=== PATIENT | male | born 1955 | race Caucasian/White ===

== ENCOUNTER → 2023-10-31 12:05 | Outpatient (REF) | payer MEDICARE, OTHER, SELFPAY | LOC: HWRAD 12:05 | PROVIDERS: ATTENDING PHYSICIAN Internal Medicine | DX: R42 Dizziness and giddiness (principal) | CPT/HCPCS: 71046 ==

== ENCOUNTER → 2024-03-07 11:16 | Outpatient (REF) | payer MEDICARE, SELFPAY | LOC: HWRCS 11:16 | PROVIDERS: ATTENDING PHYSICIAN Internal Medicine Cardiovascular Disease; FAMILY PHYSICIAN Internal Medicine | DX: I51.81 Takotsubo syndrome (principal) | CPT/HCPCS: 93306 ==

== ENCOUNTER → 2024-05-24 11:09 | Outpatient (REF) | payer MEDICARE, SELFPAY | LOC: HWRAD 11:09 | PROVIDERS: ATTENDING PHYSICIAN Internal Medicine; FAMILY PHYSICIAN Internal Medicine | DX: F17.210 Nicotine dependence, cigarettes, uncomplicated (principal) | CPT/HCPCS: 71271 ==

== ENCOUNTER 2024-12-15 17:42 | Emergency (ER) | payer OTHER, SELFPAY ==
[2024-12-15 17:51] VITALS: BP 147/66
[2024-12-15 19:19] LABS: % Basophils 0.2 % (0-2); % Eosinophils 2.4 % (0-6); % Immature Granulocytes 0.6 % (0-0.5); % Lymphocytes 9.4 % (20.5-51.1); % Monocytes 8.6 % (1.7-9.3); % Neutrophils 78.8 % (42.2-75.2); Absolute Eosinophils 0.3 10^3/uL (0-0.7); Absolute Immature Granulocytes 0.1 10^3/uL (0-0.05); Absolute Lymphocytes 1.2 10^3/uL (1.2-3.4); Absolute Monocytes 1.1 10^3/uL (0.1-0.6); Absolute Neutrophils 10.2 10^3/uL (1.4-6.5); Hematocrit 37.5 % (39.0-52.0); Hemoglobin 12.6 g/dL (13.0-18.0); Mean Corp Hgb Conc. 33.6 g/dL (33.0-37.0); Mean Corpuscular Hgb 32.4 pg (27.0-31.0); Mean Corpuscular Volume 96.4 fL (80.0-94.0); Mean Platelet Volume 9.7 fL (7.4-10.4); Nucleated Red Blood Cells % 0 % (-); Platelet Count 184 10^3/uL (130-400); Red Blood Cell Count 3.89 10^6/uL (4.70-6.10); Red Cell Dist. Width 14.8 % (11.5-14.5); White Blood Cell Count 12.9 10^3/uL (4.8-10.8)
[2024-12-15 19:29] LABS: INR 0.96
[2024-12-15 19:30] LABS: ALT (SGPT) 24 U/L (0-50); AST (SGOT) 26 U/L (17-59); Albumin 4.4 g/dl (3.5-5.0); Alkaline Phosphatase 73 U/L (38-126); Blood Urea Nitrogen 30 mg/dl (9-20); Calcium 9.3 mg/dl (8.4-10.2); Carbon Dioxide 31 mmol/L (22-30); Chloride 96 mmol/L (98-107); Glucose 93 mg/dl (70-99); Potassium 4.4 mmol/L (3.5-5.1); Sodium 136 mmol/L (135-145); Total Bilirubin 2.4 mg/dl (0.2-1.3); Total Protein 6.5 g/dl (6.3-8.2); eGFR 59.84
[2024-12-15 19:42] LABS: Troponin I 0.021 ng/ml
--- NOTE | 2024-12-15 20:00 | ED.GENMED ---
History of Present Illness
General
Chief Complaint: Chest Pain
Source: patient
Exam Limitations: none
Time Seen by Provider: 12/15/24 19:59
Nursing documentation reviewed up to this point in time: agreed with
History of Present Illness
History of Present Illness:
69-year-old male with history of COPD, HTN, MO, GERD, anxiety presents for chest pain and 'tightness' and fear of having 'pneumonia again.'
at bedside and pt state 'he's been in [place] 4 times in the past month and a half, had pneumonia and he keeps calling the ambulance because he's short of breath.'
He had a breathing test 2 days ago at [facility] 'where they put you in a big box and do breathing' state they haven't gotten the results yet. Today he had some chest pain and tightness which is new, he states his chest feels 'tight' right now. Has
had cough, unable to bring stuff up.
Denies fever/chills, denies n/v/d/c. Denies feeling lightheaded or dizzy.
Past History
Past History
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
ED Past Surgical History: Orthopedic (b/l hip replacements, fracture left femur 11/[address] Kwong)
Social History
Tobacco: Smoker
Alcohol: None
Drug: None
Personal:
Living: with family
Employment: Employed (Construction)
Family History
Family History: Hypertension
Review of Systems
Review of Systems
Allergies reviewed?: Yes
All Other Systems: ROS reviewed and negative except as documented in HPI and ROS
Constitutional: Denies fever
Respiratory: Reports trouble breathing; Denies cough
Cardiac: Reports chest pain; Denies diaphoresis or palpitations
ABD/GI: Denies abdominal pain, nausea, vomiting or diarrhea
: Denies dysuria or difficulty voiding
Musculoskeletal: Reports no symptoms
Skin: Reports no symptoms
Neurological: Reports no symptoms
Phy Exam
Physical Exam
Physical Exam:
GENERAL: No acute distress. A&Ox3.
CONSTITUTIONAL: Afebrile.
EYES: clear, conjunctivae normal
ENMT: moist mucus membranes
RESPIRATORY: Regular respirations, nonlabored, lungs with diminished BS throughout, coarse junky cough.
CARDIOVASCULAR: Regular rate and rhythm, no murmurs, no rubs.
GI: Soft, nontender, normal BS
MUSCULOSKELETAL: Moves with ease. Well perfused.
SKIN: Warm, dry, pink
PSYCH: Normal mood and affect. Well kept, interactive and appropriate
NEUROLOGIC: Awake, alert and oriented. No focal neurological deficits
Scores
Heart Score for Chest Pain Patients
STEMI patient?: Not applicable
Course
Orders/Labs/Results
Orders:
Orders
12/15/24 17:50
Electrocardiogram (*1) Urgent
Reason for Study: Chest Pain
EKG- Treatment ONCE
12/15/24 19:10
Complete Blood Count/With Diff Urgent
Comprehensive Metabolic Panel Urgent
Prothrombin Time Urgent
Troponin I Urgent
12/15/24 20:13
CR Chest - 2 Views Urgent
Comment:
Reason For Exam: cough, SOB
Abnormal Lab Results
12/15/24
19:10
WBC 12.9 H 10^3/uL
(4.8-10.8)
RBC 3.89 L 10^6/uL
(4.70-6.10)
Hgb 12.6 L g/dL
(13.0-18.0)
Hct 37.5 L %
(39.0-52.0)
MCV 96.4 H fL
(80.0-94.0)
MCH 32.4 H pg
(27.0-31.0)
RDW 14.8 H %
(11.5-14.5)
Abs Immat Gran (auto) 0.1 H 10^3/uL
(0-0.05)
Absolute Neuts (auto) 10.2 H 10^3/uL
(1.4-6.5)
Absolute Monos (auto) 1.1 H 10^3/uL
(0.1-0.6)
Immature Gran % 0.6 H %
(0-0.5)
Neutrophils % 78.8 H %
(42.2-75.2)
Lymphocytes % 9.4 L %
(20.5-51.1)
Chloride 96 L mmol/L
(98-107)
Carbon Dioxide 31 H mmol/L
(22-30)
BUN 30 H mg/dl
(9-20)
Total Bilirubin 2.4 H mg/dl
(0.2-1.3)
12/15/24 19:10
12/15/24 19:10
Vital Signs
Initial and Last Documented VS:
Initial Vital Signs
Temp Pulse Resp BP Pulse Ox
98.5 F 90 18 147/66 92
12/15/24 17:51 12/15/24 17:51 12/15/24 17:51 12/15/24 17:51 12/15/24 17:51
Last Documented Vital Signs
Temp Pulse Resp BP Pulse Ox
98.5 F 71 14 106/57 93
12/15/24 17:51 12/15/24 20:41 12/15/24 20:41 12/15/24 21:51 12/15/24 20:41
MDM/Problems Addressed
Differential Diagnosis Includes:
PNA, COPD, ACS
MDM/Problems Addressed:
69-year-old male with history of COPD, HTN, MO, GERD, anxiety presents for chest pain and 'tightness' and fear of having 'pneumonia again.'
at bedside and pt state 'he's been in [place] 4 times in the past month and a half, had pneumonia and he keeps calling the ambulance because he's short of breath.'
He had a breathing test 2 days ago at [facility] 'where they put you in a big box and do breathing' state they haven't gotten the results yet. Today he had some chest pain and tightness which is new, he states his chest feels 'tight' right now. Has
had cough, unable to bring stuff up.
Denies fever/chills, denies n/v/d/c. Denies feeling lightheaded or dizzy.
Afebrile, NAD
EKG NSR
9:30 PM:
CBC with no clinically significant abnormality
CMP with no clinically significant abnormality.
Troponin normal
Chest x-ray: No acute cardiopulmonary process, radiology report read
Pt and reassured, no heart attack, no pneumonia
They will f/u with [facility]
*EKG
EKG Intrepretation Date: 12/15/24
Interpretation: normal
Heart Rate: 72
Rate: normal
Rhythm: sinus
[place]: normal axis
Interval: normal interval
QRS Pattern: normal QRS
Ischemia: no ischemia
*Critical Care Note
Total Time (30-74mins, 75-104mins- exclusive of procedures): Not Applicable
ED Attending Note
-
Portions of this chart may have been created with voice recognition software.� Occasional wrong word or��sound alike� substitutions may have occurred due to the inherent limitations of voice recognition software.
Discharge Plan
Departure
Patient Disposition: Home (Routine Discharge)
Date of Disposition: 12/15/24
Time of Disposition: 21:45
Patient with high blood pressure during this ER visit?: No
Condition: Good
Discharge Problem:
Atypical chest pain, Chronic obstructive pulmonary disease
Instructions: Chronic obstructive pulmonary disease (COPD), Chest Pain That Is Not Caused by the Heart (DC)
Prescriptions:
No Action
albuterol sulfate [Ventolin HFA] 90 MCG/PUFF HFA aerosol inhaler
1 puff inhalation Q4HPRN PRN (Reason: SOB)
cholecalciferol (vitamin D3) 1,000 UNITS tablet
1,000 units PO DAILY
lisinopril 20 MG tablet
20 mg PO DAILY
thiamine HCl (vitamin B1) 100 MG tablet
100 mg PO DAILY
atorvastatin [Lipitor] 40 mg Tablet
40 mg PO DAILY
therapeutic multivitamin Tablet
1 tab PO DAILY
hydrocodone-acetaminophen 7.5-325 mg tablet
1 tab PO Q4H
pantoprazole [Protonix] 40 mg Tablet,Delayed Release (Dr/Ec)
40 mg PO DAILY
buspirone 15 mg Tablet
15 mg PO TID
diclofenac sodium 1 % Gel
1 ea TOPICAL BID
Patient Comments:
apply lidocaine 5% oinment first
lidocaine 5 % Ointment
1 applic TOPICAL BID
NuLido 4-1 % Gel
1 applic TOPICAL BID PRN (Reason: lower back, right shoulder, left hip)
Trelegy Ellipta 100-62.5-25 mcg Blister With Device
1 inh INHALATION R DAILY
Advil Dual Action 125-250 mg Tablet
1 tab PO QIDPRN PRN (Reason: mild pain)
gabapentin 300 MG capsule
600 mg PO TID
Referrals:
Michelle Sung, DO [Family Provider] - As needed
Activity Restrictions/Additional Instructions:
As we discussed, there is no indication of a heart attack or pneumonia in your workup here tonight
Continue to follow-up with [facility] and pulmonary rehab as scheduled
Interventions
Interventions:
*Risk Screen - Suicide Last Done: 12/15/24 17:51
*General Assessment Last Done: 12/15/24 22:00
*Neglect/Abuse Screening Last Done: 12/15/24 22:00
*ED- Fall Risk Assessment Last Done: 12/15/24 22:00
*ED COVID-19 Vaccine History Last Done: 12/15/24 22:00
*Nursing Disposition Last Done: 12/15/24 22:00
ED- Cardiac Assessment Last Done: 12/15/24 20:22
Discharge Date and Time
Discharge Date/Time: 12/15/24 22:01
Print Language: CROATIAN
[2024-12-15 21:51] VITALS: BP 106/57
== END 2024-12-15 22:01 | disposition home or self-care (01) ==
LOC: EMR 17:42
PROVIDERS: Emergency Medicine; EMERGENCY PHYSICIAN Emergency Medicine; FAMILY PHYSICIAN Family Medicine
DX: R07.89 Other chest pain (principal); J44.1 Chronic obstructive pulmonary disease with (acute) exacerbation; I10 Essential (primary) hypertension; K21.9 Gastro-esophageal reflux disease without esophagitis; F41.9 Anxiety disorder, unspecified; M48.00 Spinal stenosis, site unspecified; M19.90 Unspecified osteoarthritis, unspecified site; F17.200 Nicotine dependence, unspecified, uncomplicated; I25.2 Old myocardial infarction; Z96.643 Presence of artificial hip joint, bilateral; Z87.01 Personal history of pneumonia (recurrent); Z88.6 Allergy status to analgesic agent; Z88.7 Allergy status to serum and vaccine; Z88.8 Allergy status to other drugs, medicaments and biological substances
CPT/HCPCS: 99283; 71046; 80053; 84484; 85025; 85610; 93005

== ENCOUNTER → 2025-02-13 09:02 | Outpatient (REF) | payer OTHER, SELFPAY | LOC: HWRCS 09:02 | PROVIDERS: ATTENDING PHYSICIAN Nurse Practitioner Gerontology; FAMILY PHYSICIAN Internal Medicine | DX: I51.81 Takotsubo syndrome (principal) | CPT/HCPCS: 93306 ==

== ENCOUNTER → 2025-07-31 10:15 | Outpatient (REF) | payer OTHER, SELFPAY ==
[2025-07-31 10:47] LABS: Hematocrit 29.8 % (39.0-52.0); Hemoglobin 9.5 g/dL (13.0-18.0); Mean Corp Hgb Conc. 31.9 g/dL (33.0-37.0); Mean Corpuscular Volume 90.6 fL (80.0-94.0); Nucleated Red Blood Cells % 0 % (-); Platelet Count 285 10^3/uL (130-400); Red Cell Dist. Width 13.6 % (11.5-14.5)
[2025-07-31 10:56] LABS: ALT (SGPT) < 10 U/L (0-50); AST (SGOT) 18 U/L (17-59); Albumin 3.3 g/dl (3.5-5.0); Alkaline Phosphatase 92 U/L (38-126); Blood Urea Nitrogen 7 mg/dl (9-20); Calcium 9.0 mg/dl (8.4-10.2); Carbon Dioxide 30 mmol/L (22-30); Chloride 95 mmol/L (98-107); Glucose 84 mg/dl (70-99); HDL Cholesterol 61 mg/dl; LDL Cholesterol, Calculated 23 mg/dl; Magnesium 1.9 mg/dl (1.6-2.3); Potassium 4.4 mmol/L (3.5-5.1); Sodium 130 mmol/L (135-145); Total Protein 5.8 g/dl (6.3-8.2); Very Low Density Lipoprotein 12 mg/dl (0-30); eGFR > 60.00
== END ==
LOC: OLABN 10:15
PROVIDERS: ATTENDING PHYSICIAN Student in an Organized Health Care Education/Training Program
DX: J44.9 Chronic obstructive pulmonary disease, unspecified (principal); E87.1 Hypo-osmolality and hyponatremia
CPT/HCPCS: 36415; 80053; 80061; 83735; 85025

== ENCOUNTER 2025-08-23 05:14 | Inpatient (IN) | payer OTHER, SELFPAY ==
[2025-08-23] VITALS (19 sets, daily range): BP systolic 88–127; BP diastolic 48–78; BMI 24.7
[2025-08-23 00:42] LABS: Hematocrit 30.3 % (39.0-52.0); Hemoglobin 9.9 g/dL (13.0-18.0); Mean Corp Hgb Conc. 32.7 g/dL (33.0-37.0); Mean Corpuscular Volume 88.9 fL (80.0-94.0); Nucleated Red Blood Cells % 0 % (-); Platelet Count 326 10^3/uL (130-400); Red Cell Dist. Width 13.7 % (11.5-14.5)
[2025-08-23 01:02] LABS: ALT (SGPT) 10 U/L (0-50); AST (SGOT) 21 U/L (17-59); Albumin 3.7 g/dl (3.5-5.0); Alkaline Phosphatase 107 U/L (38-126); Blood Urea Nitrogen 10 mg/dl (9-20); Calcium 9.2 mg/dl (8.4-10.2); Carbon Dioxide 31 mmol/L (22-30); Chloride 94 mmol/L (98-107); Glucose 101 mg/dl (70-99); Potassium 4.7 mmol/L (3.5-5.1); Sodium 130 mmol/L (135-145); Total Protein 6.3 g/dl (6.3-8.2); eGFR > 60.00
[2025-08-23 01:22] LABS: Troponin I 0.077 ng/ml
--- NOTE | 2025-08-23 01:43 | ED.GENMED ---
History of Present Illness
<Rachael Lerma MD - Last Filed: 08/24/25 17:35>
General
Chief Complaint: Breathing Problem
Time Seen by Provider: 08/23/25 00:30
<Clara Tinajero MD, Resident - Last Filed: 08/23/25 02:11>
General
Source: patient and records
History of Present Illness
History of Present Illness:
Patient is a 70-year-old male with past medical history significant for asthma, COPD, OK, GERD, essential hypertension, anxiety, recurrent pneumonia, former smoker who presented to ED with worsening shortness of breath.
According to the patient he has had difficulty breathing for past couple of days along with swelling of his feet, he was undergoing a respiratory treatment at [facility], when he suddenly started to struggle to breathe.
He also noticed coughing on multiple occasions while swallowing and feels like swallowing has been an issue and noticed an increase in gabapentin from the last couple of days.
He was brought to the ER from [facility]. His oxygen requirement increased from baseline 2 L to 4 L, he was hypotensive on admission, tachycardic, having bouts of cough while speaking but able to hold a conversation.
Denies any chest pain, lightheadedness, fever, chills, headache, abdominal pain, nausea, vomiting
EKG done in the ER consistent with sinus tachycardia, troponins mildly elevated and troponins normal.
Past History
<Rachael Lerma MD - Last Filed: 08/24/25 17:35>
Past History
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
ED Past Surgical History: Orthopedic (b/l hip replacements, fracture left femur 11/[address] Kwong)
Social History
Tobacco: Smoker
Alcohol: None
Drug: None
Personal:
Living: with family
Employment: Employed (Construction)
Family History
Family History: Hypertension
Review of Systems
<Clara Tinajero MD, Resident - Last Filed: 08/23/25 02:11>
Review of Systems
Respiratory: Reports cough and trouble breathing
Musculoskeletal: Reports edema
Phy Exam
<Clara Tinjaero MD, Resident - Last Filed: 08/23/25 02:11>
General Physical Exam
General Presentation: moderate distress (Due to shortness of breath)
General age: appears older than age
Cardiovascular Exam
Cardiovascular Exam: tachycardia
Pulmonary Exam
Pulmonary Exam: respiratory distress and other (Bilateral wheezing, Rales and crackles)
Oxygen Status: oxygen 4 liters via NC
Gastrointestinal Exam
Gastrointestinal Exam: normal bowel sounds, non tender and soft
Neurological Exam
Neurological Exam: alert, oriented x3, no motor deficits and no sensory deficits
Scores
<Clara Tinajero MD, Resident - Last Filed: 08/23/25 02:11>
Heart Failure Risk
Heart Failure Risk Score: Not Applicable
Course
<Rachael Lerma MD - Last Filed: 08/24/25 17:35>
Orders/Labs/Results
Orders:
Orders
08/23/25 00:08
Electrocardiogram (*1) Urgent
Reason for Study: Other
Other Reason for Exam: Respiratory Distress
Cardiac Monitoring- Treatment ONCE
EKG- Treatment ONCE
CR Chest - 2 Views Urgent
Comment:
Reason For Exam: respiratory distress
08/23/25 00:16
Complete Blood Count/With Diff Urgent
Comprehensive Metabolic Panel Urgent
NT-proBNP Urgent
Troponin I Urgent
08/23/25 01:48
0.9% Sodium Chloride 500 ml [Nss] 500 ml IV BOLUS
08/23/25 01:49
Cefepime HCl [Maxipime] 1,000 mg IV NOW ONE
Ipratropium/Albuterol Sulfate [Duoneb] 3 ml INH R NOW STA
08/23/25 01:51
Budesonide [Pulmicort] 0.25 mg INH R ONCE ONE
08/23/25 02:07
Lactate Level [Lactic Acid] Urgent
Blood Culture Urgent
THOMAS Source: Blood/Venous
Specimen Description:
08/23/25 02:13
COVID-19 Antigen Urgent
Source: Nasal Swab
Influenza A+B Rapid Molecular Urgent
THOMAS Source: Nasal Swab
Specimen Description:
08/23/25 02:15
Budesonide [Pulmicort] 0.25 mg INH R ONCE ONE
08/23/25 02:22
Urinalysis Reflex To Culture Urgent
Date Specimen was Collected: 08/23/25
Time Specimen was Collected: 02:20
08/23/25 02:26
Blood Culture Urgent
THOMAS Source: Blood/Venous
Specimen Description:
08/23/25 04:25
0.9% Sodium Chloride 500 ml [Nss] 500 ml IV BOLUS
Aspirin Chewable [Low Strength Aspirin] 324 mg PO NOW STA
08/23/25 04:26
Admit/Transfer Patient As Directed
Co-Sign Provider:
Level of Care: Inpatient admission
Assign to:: Telemetry
Physician / Group: Mikki
Diagnosis: Acute bronchitis and or pneumonia
Reason for Telemetry: Chest Pain syndromes
Date to Stop Telemetry: 08/25/25
Time to Stop Telemetry: 11:00
Reason for Hospitalization: acute on chronic hypoxic respiratory failure
Expected length of stay greater than two midnights?: Yes
ELOS- Estimated Length of Stay in days: 2
I certify the patient meets the requirements for IP care: Yes
PRN Pain Medication Management As Directed
May give lesser potent ordered pain med per pt: Yes
preference::
Protocol:: Medication orders for pain may be administered in a
manner that supports deferring to patient preference
when the pt is:
- Requesting an ordered lesser potent pain medication.
Least to most potent pain medications are defined
as: acetaminophen < NSAID < tramadol < opioids
(morphine, oxycodone, hydromorphone).
- Requesting a lesser dose of the same medication IF
ORDERED.
- Requesting a less intrusive route of administration
if both routes are prescribed by the provider (PO <
IV).
08/23/25 04:34
Code Status As Directed
Resuscitation Status: Full Code
08/23/25 Breakfast
Regular
At Your Request: Full Participation
Does patient need a safe tray?: No
08/23/25 07:40
Acetaminophen [Tylenol] 650 mg PO Q4HPRN PRN
Bisacodyl [Dulcolax] 10 mg RECTAL DAILYPRN PRN
Guaifenesin/Dextromethorphan [Robitussin Dm] 5 ml PO Q6HPRN PRN
Ipratropium/Albuterol Sulfate [Duoneb] 3 ml INH R Q4HPRN PRN
Melatonin 3 mg PO HS PRN
Metoclopramide [Reglan] 10 mg IV Q6HPRN PRN
Oxycodone [Roxicodone] 5 mg PO Q4HPRN PRN
08/23/25 07:40
Respiratory Culture/Gram Stain Urgent
THOMAS Source: Sputum
Specimen Description:
Date Specimen was Collected: 08/23/25
Time Specimen was Collected: 09:43
Activity As Directed
Activity Level: Out of Bed-Early Mobility
Intake/ Output As Directed
Frequency: Per unit guidelines
Vital Signs As Directed
Frequency: Per unit guidelines
Weight As Directed
Frequency: Once
Comment: on admission
O2 Therapy [RESP] Routine
Nasal Cup Liter Flow: 3 LPM
Titrate/Wean O2 to maintain O2 sat greater than (%): 90
Special Instructions: Wean as tolerated
Pulse Ox/cont/shift [RESP] Routine
Quantity: 1
Special Instructions: notify provider if SPO2 < 91%
Rx Incentive Spirometry [RESP] Routine
Frequency: q1h while awake
Pt Eval And Treat Routine
Activity Level: With Assistance
DX Deep Vein Thrombosis Video Routine
08/23/25 07:45
Cefepime HCl [Maxipime] 1,000 mg IV Q6H
08/23/25 08:00
Acetylcysteine 20% [Mucomyst 20%] 2 ml INH R TID
Atorvastatin [Lipitor] 40 mg PO DAILY
Budesonide [Pulmicort] 0.25 mg INH R BID
Buspirone [Buspar] 15 mg PO TID
Cyclobenzaprine HCl [Flexeril] 5 mg PO BID
Diclofenac 1% Topical Gel See Protocol TOPICAL QID
Apply 2 or 4 grams as per protocol to the following joints:: Other joint(s)
Other joint/location to apply to:: RT shoulder, L Hip
Grams to be applied to other indicated joint/location:: 4
Docusate W/Senna [Senokot-S] 2 tablet PO BID
Doxycycline [Vibramycin] 100 mg PO BID
Gabapentin [Neurontin] 300 mg PO TID
Ipratropium/Albuterol Sulfate [Duoneb] 3 ml INH R QID
Pantoprazole [Protonix] 40 mg PO DAILY
Polyethylene Glycol Powder [Miralax] 17 grams PO DAILY
Sertraline HCl [Zoloft] 50 mg PO DAILY
08/23/25 09:46
Legionella Urinary Antigen Routine
THOMAS Source: Urine
Specimen Description:
MRSA Screen Routine
THOMAS Source: Nose
Specimen Description:
Strep pneumoniae Antigen Routine
THOMAS Source: Urine
Specimen Description:
08/23/25 18:00
Enoxaparin Sodium [Lovenox] 40 mg SC QPM
08/24/25 06:06
Basic Metabolic Panel IN AM
Complete Blood Count/No Diff IN AM
Procalcitonin IN AM
If negative, will antibiotics be d/c'd or not started: Yes
Does the patient have renal or hepatic impairment?: No
Any recent (w/in 48 hrs) physiologic stress (CPR, rhabdo): No
08/24/25 08:00
Aspirin Chewable [Low Strength Aspirin] 81 mg PO DAILY
08/25/25 11:00
DC Protocol for Telemetry ONCE
Abnormal Lab Results
08/23/25
00:16
RBC 3.41 L 10^6/uL
(4.70-6.10)
Hgb 9.9 L g/dL
(13.0-18.0)
Hct 30.3 L %
(39.0-52.0)
MCHC 32.7 L g/dL
(33.0-37.0)
Abs Immat Gran (auto) 0.1 H 10^3/uL
(0-0.05)
Absolute Monos (auto) 0.7 H 10^3/uL
(0.1-0.6)
Immature Gran % 1.4 H %
(0-0.5)
Lymphocytes % 18.2 L %
(20.5-51.1)
Eosinophils % 6.8 H %
(0-6)
Sodium 130 L mmol/L
(135-145)
Chloride 94 L mmol/L
(98-107)
Carbon Dioxide 31 H mmol/L
(22-30)
Glucose 101 H mg/dl
(70-99)
Troponin I 0.077 H* ng/ml
08/23/25 00:16
08/23/25 00:16
Vital Signs
Initial and Last Documented VS:
Initial Vital Signs
Temp Pulse Resp BP Pulse Ox
98.9 F 121 18 99/64 87
08/23/25 00:10 08/23/25 00:10 08/23/25 00:10 08/23/25 00:10 08/23/25 00:10
Last Documented Vital Signs
Temp Pulse Resp BP Pulse Ox
98.9 F 105 18 129/63 99
08/24/25 16:14 08/24/25 16:14 08/24/25 16:14 08/24/25 16:14 08/24/25 16:14
<Clara Tinajero MD, Resident - Last Filed: 08/23/25 02:11>
Orders/Labs/Results
Orders:
Orders
08/23/25 00:08
Electrocardiogram (*1) Urgent
Reason for Study: Other
Other Reason for Exam: Respiratory Distress
Cardiac Monitoring- Treatment ONCE
EKG- Treatment ONCE
CR Chest - 2 Views Urgent
Comment:
Reason For Exam: respiratory distress
08/23/25 00:16
Complete Blood Count/With Diff Urgent
Comprehensive Metabolic Panel Urgent
NT-proBNP Urgent
Troponin I Urgent
08/23/25 01:48
0.9% Sodium Chloride 500 ml [Nss] 500 ml IV BOLUS
08/23/25 01:49
Cefepime HCl [Maxipime] 1,000 mg IV NOW ONE
Ipratropium/Albuterol Sulfate [Duoneb] 3 ml INH R NOW STA
08/23/25 01:51
Budesonide [Pulmicort] 0.25 mg INH R ONCE ONE
08/23/25 02:07
Lactate Level [Lactic Acid] Urgent
Blood Culture Urgent
THOMAS Source: Blood/Venous
Specimen Description:
08/23/25 02:13
COVID-19 Antigen Urgent
Source: Nasal Swab
Influenza A+B Rapid Molecular Urgent
THOMAS Source: Nasal Swab
Specimen Description:
08/23/25 02:15
Budesonide [Pulmicort] 0.25 mg INH R ONCE ONE
08/23/25 02:22
Urinalysis Reflex To Culture Urgent
Date Specimen was Collected: 08/23/25
Time Specimen was Collected: 02:20
08/23/25 02:26
Blood Culture Urgent
THOMAS Source: Blood/Venous
Specimen Description:
08/23/25 04:25
0.9% Sodium Chloride 500 ml [Nss] 500 ml IV BOLUS
Aspirin Chewable [Low Strength Aspirin] 324 mg PO NOW STA
08/23/25 04:26
Admit/Transfer Patient As Directed
Co-Sign Provider:
Level of Care: Inpatient admission
Assign to:: Telemetry
Physician / Group: Mikki
Diagnosis: Acute bronchitis and or pneumonia
Reason for Telemetry: Chest Pain syndromes
Date to Stop Telemetry: 08/25/25
Time to Stop Telemetry: 11:00
Reason for Hospitalization: acute on chronic hypoxic respiratory failure
Expected length of stay greater than two midnights?: Yes
ELOS- Estimated Length of Stay in days: 2
I certify the patient meets the requirements for IP care: Yes
PRN Pain Medication Management As Directed
May give lesser potent ordered pain med per pt: Yes
preference::
Protocol:: Medication orders for pain may be administered in a
manner that supports deferring to patient preference
when the pt is:
- Requesting an ordered lesser potent pain medication.
Least to most potent pain medications are defined
as: acetaminophen < NSAID < tramadol < opioids
(morphine, oxycodone, hydromorphone).
- Requesting a lesser dose of the same medication IF
ORDERED.
- Requesting a less intrusive route of administration
if both routes are prescribed by the provider (PO <
IV).
08/23/25 04:34
Code Status As Directed
Resuscitation Status: Full Code
08/23/25 Breakfast
Regular
At Your Request: Full Participation
Does patient need a safe tray?: No
08/23/25 07:40
Acetaminophen [Tylenol] 650 mg PO Q4HPRN PRN
Bisacodyl [Dulcolax] 10 mg RECTAL DAILYPRN PRN
Guaifenesin/Dextromethorphan [Robitussin Dm] 5 ml PO Q6HPRN PRN
Ipratropium/Albuterol Sulfate [Duoneb] 3 ml INH R Q4HPRN PRN
Melatonin 3 mg PO HS PRN
Metoclopramide [Reglan] 10 mg IV Q6HPRN PRN
Oxycodone [Roxicodone] 5 mg PO Q4HPRN PRN
08/23/25 07:40
Respiratory Culture/Gram Stain Urgent
THOMAS Source: Sputum
Specimen Description:
Date Specimen was Collected: 08/23/25
Time Specimen was Collected: 09:43
Activity As Directed
Activity Level: Out of Bed-Early Mobility
Intake/ Output As Directed
Frequency: Per unit guidelines
Vital Signs As Directed
Frequency: Per unit guidelines
Weight As Directed
Frequency: Once
Comment: on admission
O2 Therapy [RESP] Routine
Nasal Cup Liter Flow: 3 LPM
Titrate/Wean O2 to maintain O2 sat greater than (%): 90
Special Instructions: Wean as tolerated
Pulse Ox/cont/shift [RESP] Routine
Quantity: 1
Special Instructions: notify provider if SPO2 < 91%
Rx Incentive Spirometry [RESP] Routine
Frequency: q1h while awake
Pt Eval And Treat Routine
Activity Level: With Assistance
DX Deep Vein Thrombosis Video Routine
08/23/25 07:45
Cefepime HCl [Maxipime] 1,000 mg IV Q6H
08/23/25 08:00
Acetylcysteine 20% [Mucomyst 20%] 2 ml INH R TID
Atorvastatin [Lipitor] 40 mg PO DAILY
Budesonide [Pulmicort] 0.25 mg INH R BID
Buspirone [Buspar] 15 mg PO TID
Cyclobenzaprine HCl [Flexeril] 5 mg PO BID
Diclofenac 1% Topical Gel See Protocol TOPICAL QID
Apply 2 or 4 grams as per protocol to the following joints:: Other joint(s)
Other joint/location to apply to:: RT shoulder, L Hip
Grams to be applied to other indicated joint/location:: 4
Docusate W/Senna [Senokot-S] 2 tablet PO BID
Doxycycline [Vibramycin] 100 mg PO BID
Gabapentin [Neurontin] 300 mg PO TID
Ipratropium/Albuterol Sulfate [Duoneb] 3 ml INH R QID
Pantoprazole [Protonix] 40 mg PO DAILY
Polyethylene Glycol Powder [Miralax] 17 grams PO DAILY
Sertraline HCl [Zoloft] 50 mg PO DAILY
08/23/25 09:46
Legionella Urinary Antigen Routine
THOMAS Source: Urine
Specimen Description:
MRSA Screen Routine
THOMAS Source: Nose
Specimen Description:
Strep pneumoniae Antigen Routine
THOMAS Source: Urine
Specimen Description:
08/23/25 18:00
Enoxaparin Sodium [Lovenox] 40 mg SC QPM
08/24/25 06:06
Basic Metabolic Panel IN AM
Complete Blood Count/No Diff IN AM
Procalcitonin IN AM
If negative, will antibiotics be d/c'd or not started: Yes
Does the patient have renal or hepatic impairment?: No
Any recent (w/in 48 hrs) physiologic stress (CPR, rhabdo): No
08/24/25 08:00
Aspirin Chewable [Low Strength Aspirin] 81 mg PO DAILY
08/25/25 11:00
DC Protocol for Telemetry ONCE
Abnormal Lab Results
08/23/25
00:16
RBC 3.41 L 10^6/uL
(4.70-6.10)
Hgb 9.9 L g/dL
(13.0-18.0)
Hct 30.3 L %
(39.0-52.0)
MCHC 32.7 L g/dL
(33.0-37.0)
Abs Immat Gran (auto) 0.1 H 10^3/uL
(0-0.05)
Absolute Monos (auto) 0.7 H 10^3/uL
(0.1-0.6)
Immature Gran % 1.4 H %
(0-0.5)
Lymphocytes % 18.2 L %
(20.5-51.1)
Eosinophils % 6.8 H %
(0-6)
Sodium 130 L mmol/L
(135-145)
Chloride 94 L mmol/L
(98-107)
Carbon Dioxide 31 H mmol/L
(22-30)
Glucose 101 H mg/dl
(70-99)
Troponin I 0.077 H* ng/ml
08/23/25 00:16
08/23/25 00:16
Vital Signs
Initial and Last Documented VS:
Initial Vital Signs
Temp Pulse Resp BP Pulse Ox
98.9 F 121 18 99/64 87
08/23/25 00:10 08/23/25 00:10 08/23/25 00:10 08/23/25 00:10 08/23/25 00:10
Last Documented Vital Signs
Temp Pulse Resp BP Pulse Ox
98.9 F 105 18 129/63 99
08/24/25 16:14 08/24/25 16:14 08/24/25 16:14 08/24/25 16:14 08/24/25 16:14
<Clara Tinajero MD, Resident - Last Filed: 08/23/25 02:11>
MDM/Problems Addressed
Differential Diagnosis Includes:
Acute exacerbation of COPD
Pneumonia
Flu/COVID
Less likely heart failure given normal echocardiogram within the last 3 months
Less likely PE
MDM/Problems Addressed:
Based on history, examination, record review, blood work, chest x-ray, EKG it seems most likely an acute exacerbation of COPD. Troponins mildly elevated but clinical picture does not fit cardiac etiology. proBNP levels normal. EKG consistent with
sinus tachycardia. Given chest findings with suspect aspiration pneumonia versus acute exacerbation of COPD. Less likely PE.
For low blood pressures 500 mL bolus of normal saline given. Collect sputum culture, blood culture, urine sample and give cefepime dose. DuoNebs given.
<Rachael Lerma MD - Last Filed: 08/24/25 17:35>
*Pulse Oximetry
SaO2: 98
Nasal Cannula flow liters per minute: 2
<Clara Tinajero MD, Resident - Last Filed: 08/23/25 02:11>
*Pulse Oximetry
Patient hypoxic: yes
*Critical Care Note
Total Time (30-74mins, 75-104mins- exclusive of procedures): Not Applicable
ED Attending Note
<Rachael Lerma MD - Last Filed: 08/24/25 17:35>
ED Attending Note
Patient seen and examined by attending physician: Yes
I performed the substantive portion of visit, reviewed & personally made and approve the management plan that is documented in note by myself or MARY.: Yes
ED Attending Note:
70-year-old male presents emergency department with worsening dyspnea which started a few days ago but got specifically worse tonight he states while having a breathing treatment. He denies fever, sore throat but does note increase in cough over
the last day or 2. He also notes increasing lower extremity edema. On exam, patient is on 4 L of oxygen which is an increase from his usual 2 L. He can speak in long phrases, and is awake and alert. No stridor, oropharynx clear heart regular
rate and rhythm, tachycardic. Lung sounds equal throughout, wheezing noted with bilateral rales. Abdomen soft and nontender. Trace to 1+ bilateral lower extremity edema well-perfused. Labs noted chest x-ray ECG noted, vitals noted. Patient is
mildly hypotensive and IV fluids will be started now, with reassessment. Highly doubt heart failure given findings here. Findings more suspicious for COPD exacerbation with potential infectious component, need to consider aspiration given patient
states that he sometimes has trouble swallowing. We will draw blood cultures, lactic, begin antibiotics, admission. Highly doubt PE. Suspect troponin mild elevation likely demand related.
-
Portions of this chart may have been created with voice recognition software.� Occasional wrong word or��sound alike� substitutions may have occurred due to the inherent limitations of voice recognition software.
Discharge Plan
Departure
Patient Disposition: Admit
Date of Disposition: 08/23/25
Time of Disposition: 02:11
Presentation/result/management discussed w/ accepting MD/DO: Hospitalist
Patient with high blood pressure during this ER visit?: No
Discharge Problem:
Acute exacerbation of COPD
Interventions
Interventions:
*Risk Screen - Suicide Last Done: 08/23/25 00:21
*General Assessment Last Done: 08/23/25 00:21
*Neglect/Abuse Screening Last Done: 08/23/25 00:21
*ED- Fall Risk Assessment Last Done: 08/23/25 00:21
*ED COVID-19 Vaccine History Last Done: 08/23/25 00:21
*ED Influenza Vaccine History Last Done: 08/23/25 00:21
*Nursing Disposition Last Done: 08/23/25 07:38
ED- Cardiac Assessment Last Done: 08/23/25 00:30
ED- Pulmonary Assessment Last Done: 08/23/25 00:30
Discharge Date and Time
Discharge Date/Time: 08/23/25 07:38
[2025-08-23] MEDS: NSS 500 IV ×2 (01:52→04:53)
[2025-08-23] MEDS: MAXIPIME 1000 MG IV ×4 (01:53→19:43)
--- NOTE | 2025-08-23 01:53 | HPS.HSE ---
Family Physician
-
Family Physician: Jose Martin Wilson,
Chief Complaint
-
Shortness of breath
History of Present Illness
This is a 70-year-old male with past medical history significant for COPD/asthma on 2 L home O2, prior history of hypertension, hyperlipidemia, CAD, GERD, presents to the emergency department with worsening shortness of breath.
Patient arrived from detention. He is a fairly poor historian. He states he has been having a cough for about 2 days. He also says he has been somewhat short of breath but cannot give details. He says he particularly was short of breath while
getting a nebulizer treatment prior to coming to the emergency department. Says his cough is nonproductive. He denies other upper respiratory symptoms such as rhinorrhea, nasal congestion, postnasal drip, sore throat. He states he has been
having's sensation of fever but his vital signs have been without fevers at the detention.
He states prior to recently started on a new inhaler and feels that he has improved respiratory status up until few days ago. He reports history of gastroparesis and does report chronic abdominal discomfort in the epigastric region with nausea. He
denies any vomiting. He denies any aspiration. He denies having any recent diarrhea.
According to records from [facility] patient was recently on azithromycin from the to the for bronchitis/bronchiectasis.
On arrival emergency department patient was hypoxic to 87% on 2 L currently satting 98% on 4 L. Blood pressure was 90/40. He was afebrile with a Tmax of 98.7. He was tachycardic to 122. Respirate rate was around 10. ECG showed sinus tachycardia
at [address] or T wave changes. Troponin was 0.07. BNP was negative at 281. Chest x-ray appears to show a hazy right middle lobe density.
CBC was similar to prior with a hemoglobin of 9.9 white count of 8.5, plt 326. He does not have 1% immature cells. Eosinophil to 6.5%. Electrolytes shows a sodium of 130 which is similar to prior. Otherwise unremarkable with normal BUN and
creatinine. COVID test was negative. Flu test was negative. UA was unremarkable.
Medical History
Past Medical History
Past Medical History: Reports Asthma, CAD (History of chest pain status post cardiac cath), COPD (On 2 L home O2), GERD, HTN and Other (History of alcohol abuse, fatty liver, acute calculous cholecystitis status post cholecystectomy, gastroparesis)
Additional Past Medical History:
Spinal stenosis status post stimulator
Past Surgical History: Reports Cholecystectomy (2022) and Orthopedic (Right hip replacement, left hip replacement, left knee surgery)
Social History
Tobacco: Former Smoker
Alcohol: Former
Drug: None
Family History
Family History: Not pertinent
Allergies / Home Medications
Allergies reflects when Allergies were last updated in [facility].
Home Medications with original date entered in [facility]
Allergy/Medication List:
Allergies
Allergy/AdvReac Type Severity Reaction Status Date / Time
aluminum hydroxide (From Allergy Shortness Verified 05/30/23 05:17
Mylanta) of Breath
amlodipine Allergy Rash Verified 05/30/23 05:17
calcium carbonate (From Allergy Shortness Verified 05/30/23 05:17
Mylanta) of Breath
Influenza Virus Vaccines Allergy Unknown Verified 05/30/23 05:17
magnesium (From Mylanta) Allergy Shortness Verified 05/30/23 05:17
of Breath
magnesium hydroxide (From Allergy Shortness Verified 05/30/23 05:17
Mylanta) of Breath
simethicone (From Mylanta) Allergy Shortness Verified 05/30/23 05:17
of Breath
tramadol Allergy Shortness Verified 05/30/23 05:17
of Breath
Home Medications
albuterol sulfate 90 mcg/actuation aerosol inhaler (Ventolin HFA) 1 puff inhalation Q4HPRN PRN SOB 03/24/12
cholecalciferol (vitamin D3) 25 mcg (1,000 unit) tablet 1,000 units PO DAILY 11/10/16
lisinopril 20 mg tablet 20 mg PO DAILY 11/10/16
thiamine HCl (vitamin B1) 100 mg tablet 100 mg PO DAILY 12/07/18
atorvastatin 40 mg tablet (Lipitor) 40 mg PO DAILY 01/04/23
buspirone 15 mg tablet 15 mg PO TID 01/04/23
diclofenac sodium 1 % topical gel 1 ea topical BID left hip,right shoulder, lower back 01/04/23
fluticasone fur. 100 mcg-umeclid 62.5 mcg-vilant 25 mcg inhalat.powder (Trelegy Ellipta) 1 inh inhalation R DAILY 01/04/23
gabapentin 300 mg capsule 600 mg PO TID 01/04/23
hydrocodone 7.5 mg-acetaminophen 325 mg tablet 1 tab PO Q4H 01/04/23
ibuprofen 125 mg-acetaminophen 250 mg tablet (Advil Dual Action) 1 tab PO QIDPRN PRN mild pain 01/04/23
lidocaine 5 % topical ointment 1 applic topical BID left hip, right shoulder, lower back 01/04/23
lidocaine HCl 4 %-menthol 1 % topical gel (NuLido) 1 applic topical BID PRN lower back, right shoulder, left hip 01/04/23
pantoprazole 40 mg tablet,delayed release (Protonix) 40 mg PO DAILY 01/04/23
therapeutic multivitamin 1 tab PO DAILY 01/04/23
Review of Systems
-
Constitutional: Reports No Symptoms
EENT: Reports No Symptoms
Respiratory: Reports Cough and Trouble Breathing
Cardiac: Reports No Symptoms
Abdomen/GI: Reports No Symptoms
: Reports No Symptoms
Musculoskeletal: Reports Edema
Skin: Reports No Symptoms
Neurological: Reports No Symptoms
Endocrine: Reports No Symptoms
Hematologic/Lymphatic: Reports No Symptoms
Psych: Reports No Symptoms
Physical Exam
Vital Signs
Vital Signs
Temp Pulse Resp BP Pulse Ox
98.9 F 122 10 90/48 98
08/23/25 00:10 08/23/25 01:40 08/23/25 01:40 08/23/25 01:40 08/23/25 01:45
Physical Exam
General: Comfortable and Appears Chronically Ill
HEENT: NormoCephalic, Atraumatic and Oxygen
Respiratory: Rales and Crackles
Cardiac: S1/S2 and Tachycardia; No Murmur or Rub
GI: Soft, Non Tender, Non Distended and Normal Bowel Sounds; No Organomegaly
Rectal: Deferred by Provider
Genito-urinary: Deferred by me
Musculoskeletal: No Clubbing, No Cyanosis and No Edema
Skin: No Rash
Neuro: AO x 3 and Nonfocal/grossly intact
Hematologic/Lymphatic: No Lymphadenopathy
Psych: Calm
Laboratory Results
-
08/23/25 00:16
08/23/25 00:16
Laboratory Results
Total Bilirubin 0.5 mg/dl (0.2-1.3) 08/23/25 00:16
AST 21 U/L (17-59) 08/23/25 00:16
ALT 10 U/L (0-50) 08/23/25 00:16
Alkaline Phosphatase 107 U/L (38-126) 08/23/25 00:16
Troponin I 0.077 ng/ml H* 08/23/25 00:16
Data Reviewed
-
Diagnostic Radiology: Image Personally Visualized and interpreted
Medical Tests (Nuc Med, Echo, EKG etc): Image Personally Visualized and interpreted
Lab Data: Labs Reviewed by me
Old Records: Reviewed
Impression/Plan
-
IMPRESSION:
70-year-old with past medical history significant for asthma/COPD, CAD, prior history of hypertension, history of, alcohol dependence presenting to the emergency department with 2 days of cough and progressive shortness of breath. Afebrile in the
ED. X-ray with hazy right middle and right lower lobe density. With blood pressures in the 90s systolic. ECG with sinus tach at 121 with a troponin of 0.07. No chest pain. Hypoxic, patient usually on 2 L but currently on 4 L with saturation of
around 98%. Suspect COPD exacerbation and likely early pneumonia. On exam she has rhonchi but only occasional wheezes.
PLAN:
Pneumonia with COPD exacerbation -hypoxia, hazy opacity, rhonchi and rails, no fever, no leukocytosis. In the ED no significant peripheral edema. No JVD and BNP is negative. Overall suspect bronchitis versus pneumonia. Lactic acid is negative.
- Admit to telemetry
- Will check procalcitonin
� Blood culture sent
� And no significant output for sputum culture, will obtain afebrile level
� Check Legionella and pneumococcal antigens
� IV cefepime and doxycycline for now
� Check MRSA swab
� Supplemental oxygen to keep SaO2 greater than 90%
� Incentive spirometry, continue inhaled steroids as well as bronchodilators.
� Continue acetylcysteine solution
Nonischemic myocardial injury suspected. Elevated troponin troponin to 0.07. No chest pain. ECG is nonischemic. History of CAD status post MT in the past.
� Aspirin 324 x 1
� Continue aspirin 81 mg daily
� Continue statin
� Trend troponin
� Cardiology consult
Hypotension -relative hypotension but unknown baseline. Lactic acid is negative. Afebrile. No clear evidence of sepsis.
� Hold lisinopril for now
� IV NS bolus
- Monitor for now
Hyponatremia - Chronic and at baseline
- repeat lab after NS bolus
DVT processes�Lovenox subcu
CODE STATUS�full code
[2025-08-23] MEDS: DUONEB 3 ML INH ×5 (02:16→20:16)
[2025-08-23 02:37] LABS: Urine Character Clear (Clear)
[2025-08-23] MEDS: PULMICORT 0.25 MG INH ×3 (02:44→20:16)
[2025-08-23 02:51] LABS: COVID-19 Antigen Negative (Negative)
[2025-08-23] MEDS: LOW STRENGTH ASPIRIN 324 MG PO (04:54)
[2025-08-23] MEDS: MUCOMYST 20% 2 ML INH ×3 (08:19→20:17)
[2025-08-23 08:41] LABS: Troponin I 1.890 ng/ml
[2025-08-23] MEDS: PROTONIX 40 MG PO (09:06)
[2025-08-23] MEDS: LIPITOR 40 MG PO (09:06)
[2025-08-23] MEDS: SENOKOT-S 2 TABLET PO ×2 (09:06→19:45)
[2025-08-23] MEDS: VIBRAMYCIN 100 MG PO ×2 (09:06→19:43)
[2025-08-23] MEDS: STERILE WATER FOR INJECTION 10 ML IV ×3 (09:06→19:43)
[2025-08-23] MEDS: BUSPAR 15 MG PO ×3 (09:07→22:27)
[2025-08-23] MEDS: DICLOFENAC 1% TOPICAL GEL 100 GRAM TOPICAL ×4 (09:07→22:28)
[2025-08-23] MEDS: NEURONTIN 300 MG PO ×3 (09:07→22:27)
[2025-08-23] MEDS: MIRALAX 17 GRAMS PO (09:08)
[2025-08-23] MEDS: ZOLOFT 50 MG PO (09:08)
[2025-08-23] MEDS: FLEXERIL 5 MG PO ×2 (09:10→19:43)
[2025-08-23] MEDS: HEPARIN 25000 UNITS/250 ML IV (09:54)
[2025-08-23] MEDS: ROXICODONE 5 MG PO ×2 (09:54→15:50)
[2025-08-23] MEDS: HEPARIN 4000 UNITS IV (10:00)
[2025-08-23 10:15] LABS: APTT 38.1 Sec (23.4-35.0)
--- NOTE | 2025-08-23 12:12 | CON.CAR ---
Addendum entered and electronically signed by Grecia Thornton MD 08/23/25 18:16:
I saw and evaluated the patient, and I provided the substantive portion of the medical decision making.
I reviewed and agree with the note by Mercy ODONNELL and it accurately reflects our care.
I personally performed the medical decision making of the this encounter and my assessment and plan is below:
69-year-old gentleman with past medical history of hypertension, Takotsubo cardiomyopathy and COPD presents from her halfway with worsening shortness of breath. Additionally, he reports he has pain all over his body and is fixated on abdominal
pain and constipation. We are asked to comment given troponin elevation from 0.077-1.89 peak.
proBNP not elevated at 281. Currently he is feeling a bit better. When I ask him whether or not he has had chest pain he states however he knows he has pain all over his body. Nothing in particular on his complaints. On exam he appears older
than stated age. He has diffuse rhonchi bilaterally, regular rate and rhythm with a normal S1-S2 no murmur rubs gallops were appreciated,
Chest x-ray showed no evidence of pulmonary edema.
EKG showed sinus tachycardia
Troponin as above and proBNP as above.
Assessment:
Abnormal troponin: At this point it is hard to state whether or not this is a type I or type II TN. For now we will continue with aspirin and heparin drip. Will monitor over the weekend. If no chest pain, would recommend starting with an
echocardiogram to assess for any LV dysfunction. Certainly with his degree of COPD pulmonary findings, this could be demand. However he also has risk factors of hypertension, former smoker and age supportive of a type I etiology. He may need a
cardiac catheterization. He understands. Avoiding beta-dyana due to COPD. Continue aspirin, heparin, statin
Hypertension: Holding lisinopril as blood pressure soft, could consider adding back when able.
Acute on chronic hypoxic respiratory failure care as per medicine.
Will follow
Original Note:
Consultation
Consultation Request
Date/Time Consultation Requested: 08/23/2025 0900
Date/Time Consultation Performed: 08/23/2025 1130
Requesting Provider: Dr. Kaye
Performing Provider: Dr. Thornton
Reason for Consultation: chest pain , SOB
Medical History
-
Chief Complaint: SOB, CP
History of Present Illness:
69 y/o pt with HTN, Takotsubo CM,COPD who presented from the halfway with worsening SOB. He had increased O2 needs as well. He had been having increased LE edema and was noted to be tachycardic and hypotensive requiring IVF. . BNP in ER not
significantly elevated. Pt also notes he has been having GI issues with indigestion and constipation. He complains of some chest discomfort but states it is more of a pressure at times. In past he had a pectoral muscle problem and he saw a
chiropractor who fixed that. He states this feels slightly similar but not as intense.
Past Medical History
Past Medical History: Other (asthma, GERD, HTN, COPD)
Past Surgical History: Cholecystectomy and Other ( R GWENDOLYN, L GWENDOLYN. L knee surgery)
Social History
Tobacco: Former Smoker
Alcohol: Former
Living: Detention
Family History
Family History: Reviewed & Not Pertinent
Allergies / Home Medications
Allergy/AdvReac Type Severity Reaction Status Date / Time
aluminum hydroxide (From Allergy Shortness Verified 05/30/23 05:17
Mylanta) of Breath
amlodipine Allergy Rash Verified 05/30/23 05:17
calcium carbonate (From Allergy Shortness Verified 05/30/23 05:17
Mylanta) of Breath
Influenza Virus Vaccines Allergy Unknown Verified 05/30/23 05:17
magnesium (From Mylanta) Allergy Shortness Verified 05/30/23 05:17
of Breath
magnesium hydroxide (From Allergy Shortness Verified 05/30/23 05:17
Mylanta) of Breath
simethicone (From Mylanta) Allergy Shortness Verified 05/30/23 05:17
of Breath
tramadol Allergy Shortness Verified 05/30/23 05:17
of Breath
�Medication �Instructions �Recorded �Confirmed �Type
albuterol sulfate 90 mcg/actuation 1 puff inhalation Q4HPRN PRN SOB 03/24/12 05/30/23 History
aerosol inhaler (Ventolin HFA)
cholecalciferol (vitamin D3) 25 1,000 units PO DAILY 11/10/16 05/30/23 History
mcg (1,000 unit) tablet
lisinopril 20 mg tablet 20 mg PO DAILY 11/10/16 05/30/23 History
thiamine HCl (vitamin B1) 100 mg 100 mg PO DAILY 12/07/18 05/30/23 History
tablet
atorvastatin 40 mg tablet (Lipitor) 40 mg PO DAILY 01/04/23 05/30/23 History
buspirone 15 mg tablet 15 mg PO TID 01/04/23 05/30/23 History
diclofenac sodium 1 % topical gel 1 ea topical BID left hip,right 01/04/23 05/30/23 History
shoulder, lower back
fluticasone fur. 100 mcg-umeclid 1 inh inhalation R DAILY 01/04/23 01/04/23 History
62.5 mcg-vilant 25 mcg
inhalat.powder (Trelegy Ellipta)
gabapentin 300 mg capsule 600 mg PO TID 01/04/23 05/30/23 History
hydrocodone 7.5 mg-acetaminophen 1 tab PO Q4H 01/04/23 05/30/23 History
325 mg tablet
ibuprofen 125 mg-acetaminophen 250 1 tab PO QIDPRN PRN mild pain 01/04/23 05/30/23 History
mg tablet (Advil Dual Action)
lidocaine 5 % topical ointment 1 applic topical BID left hip, 01/04/23 05/30/23 History
right shoulder, lower back
lidocaine HCl 4 %-menthol 1 % 1 applic topical BID PRN lower 01/04/23 05/30/23 History
topical gel (NuLido) back, right shoulder, left hip
pantoprazole 40 mg tablet,delayed 40 mg PO DAILY 01/04/23 05/30/23 History
release (Protonix)
therapeutic multivitamin 1 tab PO DAILY 01/04/23 05/30/23 History
Review of Systems
-
Constitutional: No Symptoms
EENT: No Symptoms
Respiratory: Trouble Breathing
Cardiac: Chest Pain (chest pressure comes and goes, sometimes worse with eating. )
Abdomen/GI: Abdominal Pain and Constipated
Musculoskeletal: Joint Pain
Physical Exam
Vital Signs
Temp Pulse Resp BP Pulse Ox
98.0 F 107 18 127/57 97
08/23/25 11:12 08/23/25 11:12 08/23/25 11:12 08/23/25 11:12 08/23/25 11:12
Lab Results
08/23/25 00:16
08/23/25 00:16
Troponin I 1.890 ng/ml H* D 08/23/25 08:05
Xzw-T-Uirnkpgcaru Pept 281 pg/ml 08/23/25 00:16
Physical Exam
General: Well Developed and No Apparent Distress
HEENT: Normocephalic
Respiratory: Rhonchi
Cardiac: S1/S2 and Regular Rhythm
Breast: Deferred by me
GI: Soft and Tender (palpation of abdomen causes pt abdominal pain and back pain per his report)
Musculoskeletal: No Edema
Skin: Warm and Dry
Neuro: AO x 3
Psych: Calm
Impression / Plan
-
COPD exacerbation :
-PNA noted
-on antibiotics, O2 , MDI
Chest pain/NSTEMI:
-peak troponin 1.89 so far, con't to trend
-on asa, IV heparin , statin
-echo 02/13/25 EF 60-65% no significant valvular disease
-update echo, check lipids
-hold on beta dyana given pulmonary issue
-no prior CAD in records , mild atherosclerosis on CT chest 05/2024
-ischemic eval/LHC when respiratory status improves.
hypotension:
-improving with IVF
-meds on hold
HTN:
-lisinopril on hold given hypotension.
Prior Takotsubo CM:
-resoved with normalized EF on last echo 02/13/25
Data Reviewed
-
Radiology: Report Reviewed by me (CXR 08/23/25 Lungs: Right basilar linear atelectasis.. No pleural effusion or pneumothorax. Heart: Cardiac and mediastinal contours are unremarkable. Mild atherosclerotic calcifications aortic arch. Osseous
structures: No acute osseous abnormality. Partially visualized spinal stimulator leads term)
Medical Tests (Nuc Med, Echo etc): Report Reviewed by me (Echo 03/07/24: TDS. Normal LV size and function, and in limited views no obvious wall motion abnormality. LVEF is 55 to 60% by visual estimation. Normal right ventricular size and
function. No significant valvular disease. )
Labs: Labs Reviewed by me, Discussed with Physician and Discussed with Patient
Old Records: Reviewed (Summarized as above )
--- NOTE | 2025-08-23 12:18 | CM ---
Patient seen at bedside
IA completed
spoke with sister Jeanette
Patient is a resident at [facility], states recently moved in LTC from their [facility].
referral placed in [facility] - spoke with Asia at [facility] to confirm pharmacy (updated [facility])
PLOF: walker, more recent in wheelchair
PT to eval
DME: Walker, cane, wheelchair, oxygen 2L cont
PCP: Jose Martin Wilson
Pharmacy: [facility]
PLAN: Return to [facility] when stable
[2025-08-23] MEDS: GLYCERIN SUPPOSITORY ADULT 1 SUPP RECTAL (13:46)
[2025-08-23 15:26] LABS: Troponin I 0.771 ng/ml
--- NOTE | 2025-08-23 15:27 | W.PN.HOSP.TC ---
Today's Communication/Plan
-
Assessment / Plan
Assessment / Plan
General: No Apparent Distress, Comfortable and Conversant
HEENT: NormoCephalic, Moist mucous membranes, nasal cannula in place
Respiratory: Scattered rhonchi bilaterally, Non Labored Respirations
Cardiac: S1/S2 and Regular Rhythm; No Rub or Gallop
GI: Soft, Non Tender, Non Distended and Normal Bowel Sounds
Musculoskeletal: Mild pedal edema, no deformity
Skin: Warm and dry
: NO Lerma
Neuro: Awake, Alert, mild tremor
Psych: Calm and cooperative
Mr. Carter is a 70-year-old male with medical history of COPD/asthma (2 L at baseline), Takotsubo's cardiomyopathy, hypertension, and GERD who presented with shortness of breath and cough. He was requiring increased supplemental oxygen up to 4 L
via nasal cannula. His blood pressure initially was 90/40 with tachycardia up to 122. Chest x-ray was generally unremarkable but he had rales and rhonchi on exam. Respiratory panel was negative for influenza and COVID. He had mild hyponatremia
with a serum sodium 130 and initial troponin was slightly elevated at 0.077. He was given full-strength aspirin, bolused 500 cc of NS, started on antibiotics, and admitted for further evaluation and management.
Respiratory infection, pneumonia or bronchitis:
- Continues to have cough productive of yellowish sputum
- Continue antibiotics with cefepime and doxycycline, follow-up cultures including sputum culture
- Continue scheduled breathing treatments for his known COPD
- Supplemental oxygen as needed, currently requiring 3 to 4 L, on 2 L at baseline
Acute on chronic respiratory failure with hypoxia:
- Secondary to respiratory infection
- Plan as above
NSTEMI:
- Troponins appear to have peaked at 1.89
- Continue IV heparin for now
- Low-dose aspirin and statin
- Cardiology following, planning echo Monday, eventual ischemic evaluation when respiratory status improves
Hypotension:
- Likely hypovolemic, improving with IV fluids
- Continue holding antihypertensive medications for now
Hyponatremia:
- Mild with a serum sodium 130, likely hypovolemic
- Given normal saline, will monitor
DVT prophylaxis: IV heparin
CODE STATUS: Full code
Anticipated Discharge: > 48 hours
Subjective/Interval History
-
Date of Service: August 23, 2025
Patient was seen and examined at bedside this morning. Started on IV heparin this morning for uptrending troponins. Remains on supplemental oxygen. Continues to have productive cough.
Objective Data
-
Labs:
Laboratory Results
08/23/25 08/23/25
09:44 16:00
APTT 38.1 H Pending
Vital Signs:
Vital Signs
Temp Pulse Resp BP Pulse Ox
97.8 F 105 18 112/60 96
08/23/25 15:20 08/23/25 15:20 08/23/25 15:20 08/23/25 15:20 08/23/25 15:20
I&O
08/22/25 08/23/25 08/24/25
06:59 06:59 06:59
Output Total 650 / 650
Balance -650 / -650
Review of Systems
-
History Source: Patient
All other systems: Reviewed and negative
Respiratory: Reports Cough and Trouble Breathing
Physical Exam
-
General: No Apparent Distress
[2025-08-23] MEDS: DULCOLAX 10 MG RECTAL (15:51)
[2025-08-23 17:19] LABS: APTT 64.3 Sec (23.4-35.0)
[2025-08-23 23:56] LABS: APTT 82.2 Sec (23.4-35.0)
[2025-08-24] VITALS (7 sets, daily range): BP systolic 103–150; BP diastolic 59–87; PULSE 107; O2SAT 97
[2025-08-24] MEDS: STERILE WATER FOR INJECTION 10 ML IV ×4 (01:47→19:37)
[2025-08-24] MEDS: MAXIPIME 1000 MG IV ×4 (01:48→19:37)
[2025-08-24 06:52] LABS: Hematocrit 28.3 % (39.0-52.0); Hemoglobin 9.4 g/dL (13.0-18.0); Mean Corp Hgb Conc. 33.2 g/dL (33.0-37.0); Mean Corpuscular Volume 88.4 fL (80.0-94.0); Platelet Count 318 10^3/uL (130-400); Red Cell Dist. Width 13.6 % (11.5-14.5)
[2025-08-24 06:54] LABS: APTT 57.6 Sec (23.4-35.0)
[2025-08-24 06:55] LABS: Blood Urea Nitrogen 6 mg/dl (9-20); Calcium 9.3 mg/dl (8.4-10.2); Carbon Dioxide 31 mmol/L (22-30); Chloride 97 mmol/L (98-107); Estimated Creatinine Clearance 105 ml/min; Glucose 92 mg/dl (70-99); Potassium 3.7 mmol/L (3.5-5.1); Sodium 132 mmol/L (135-145); eGFR > 60.00
[2025-08-24 07:14] LABS: Procalcitonin < 0.05 ng/ml (0.0-0.25)
[2025-08-24] MEDS: PULMICORT 0.25 MG INH ×2 (07:48→18:59)
[2025-08-24] MEDS: FLEXERIL 5 MG PO ×2 (07:49→19:37)
[2025-08-24] MEDS: MUCOMYST 20% 2 ML INH ×2 (07:49→18:59)
[2025-08-24] MEDS: DUONEB 3 ML INH ×4 (07:49→18:58)
[2025-08-24] MEDS: VIBRAMYCIN 100 MG PO ×2 (07:51→19:39)
[2025-08-24] MEDS: PROTONIX 40 MG PO (07:51)
[2025-08-24] MEDS: LOW STRENGTH ASPIRIN 81 MG PO (07:51)
[2025-08-24] MEDS: LIPITOR 40 MG PO (07:51)
[2025-08-24] MEDS: ZOLOFT 50 MG PO (07:51)
[2025-08-24] MEDS: BUSPAR 15 MG PO ×3 (07:51→21:24)
[2025-08-24] MEDS: SENOKOT-S PO (07:51)
[2025-08-24] MEDS: NEURONTIN 300 MG PO ×3 (07:51→21:24)
[2025-08-24] MEDS: MIRALAX PO (07:52)
[2025-08-24] MEDS: DICLOFENAC 1% TOPICAL GEL 100 GRAM TOPICAL ×4 (08:26→21:25)
[2025-08-24] MEDS: ROXICODONE 10 MG PO ×2 (09:07→16:30)
[2025-08-24] MEDS: HEPARIN 25000 UNITS/250 ML IV (09:51)
[2025-08-24 13:19] LABS: APTT 143.4 Sec (23.4-35.0)
--- NOTE | 2025-08-24 14:37 | W.PN.CD ---
Today's Communication / Plan
-
continue heparin gtt
echo in
npo while we determine if cath is needed
Impression / Plan
-
COPD exacerbation :
-PNA noted
-on antibiotics, O2 , MDI
KS; unclear if TYPE1 vs TypeII
-he cannot endorse or deny cp.
-peak troponin 1.89 so far,
-on asa, IV heparin , statin
-echo 02/13/25 EF 60-65% no significant valvular disease
-update echo if abnormal would proceed to cath vs stress
-additionally will review with Dr Ashton(his primary pilot submersible)
-hold on beta dyana given pulmonary issue
-no prior CAD in records , mild atherosclerosis on CT chest 05/2024
-ischemic eval/LHC when respiratory status improves.
hypotension:
-improving with IVF
HTN:
-lisinopril on hold given hypotension.
Prior Takotsubo CM:
-resoved with normalized EF on last echo 02/13/25
Physical Exam
Vital Signs/Labs
Vital Signs
Temp Pulse Resp BP Pulse Ox
98.2 F 107 18 127/63 97
08/24/25 12:00 08/24/25 12:00 08/24/25 12:00 08/24/25 12:00 08/24/25 12:00
08/23/25 08/24/25 08/25/25
06:59 06:59 06:59
Actual Weight 154 lb 5.177 oz 153 lb 4 oz
08/24/25 06:06
08/24/25 06:06
APTT 143.4 Sec (23.4-35.0) H 08/24/25 12:53
08/23/25
00:16
Ure-X-Eljdexjlvrf Pept 281
LAB Results
08/23/25 08/23/25 08/23/25
00:16 08:05 14:30
Troponin I 0.077 H* 1.890 H* D 0.771 H* D
Physical Exam
Constitutional: No acute distress
Cardiovascular: Rhythm & rate is regular, Pedal edema is absent, JVD pressure is normal, Systolic murmur absent and Diastolic murmur absent
Respiratory: Respiratory effort normal and Rhonchi Present (b/l)
Neuro/Psych: AO x 3
Data Reviewed
-
Date of Service: August 24, 2025
--- NOTE | 2025-08-24 14:38 | W.PN.HOSP.TC ---
Today's Communication/Plan
-
Assessment / Plan
Assessment / Plan
General: No Apparent Distress, Comfortable and Conversant
HEENT: NormoCephalic, Moist mucous membranes, nasal cannula in place
Respiratory: Scattered rhonchi bilaterally, Non Labored Respirations
Cardiac: S1/S2 and Regular Rhythm; No Rub or Gallop
GI: Soft, Non Tender, Non Distended and Normal Bowel Sounds
Musculoskeletal: Mild pedal edema, no deformity
Skin: Warm and dry
: NO Lerma
Neuro: Awake, Alert, mild tremor
Psych: Calm and cooperative
Mr. Carter is a 70-year-old male with medical history of COPD/asthma (2 L at baseline), Takotsubo's cardiomyopathy, hypertension, and GERD who presented with shortness of breath and cough. He was requiring increased supplemental oxygen up to 4 L
via nasal cannula. His blood pressure initially was 90/40 with tachycardia up to 122. Chest x-ray was generally unremarkable but he had rales and rhonchi on exam. Respiratory panel was negative for influenza and COVID. He had mild hyponatremia
with a serum sodium 130 and initial troponin was slightly elevated at 0.077. He was given full-strength aspirin, bolused 500 cc of NS, started on antibiotics, and admitted for further evaluation and management.
Respiratory infection, pneumonia or bronchitis:
- Continues to have cough productive of yellowish sputum
- Continue antibiotics with cefepime and doxycycline, follow-up cultures including sputum culture
- Continue scheduled breathing treatments for his known COPD
- Supplemental oxygen as needed, currently back to his baseline 2 L
Acute on chronic respiratory failure with hypoxia:
- Secondary to respiratory infection
- Plan as above
NSTEMI:
- Troponins appear to have peaked at 1.89
- Continue IV heparin for now
- Low-dose aspirin and statin
- Cardiology following, planning echo Monday, eventual ischemic evaluation when respiratory status improves
Hypotension:
- Likely hypovolemic, improving
- Continue holding antihypertensive medications for now
Hyponatremia:
- Mild with a serum sodium 130, likely hypovolemic
- Given normal saline, slightly improved to 132
- Will monitor
Chronic pain:
- Back and hip pain
- Continue outpatient oxycodone 10 mg every 8 hours
DVT prophylaxis: IV heparin
CODE STATUS: Full code
Anticipated Discharge: > 48 hours
Subjective/Interval History
-
Date of Service: August 24, 2025
Patient was seen and examined at bedside this morning. Continues to have productive cough. Oxygen has been titrated back to his baseline of nasal cannula.
Objective Data
-
Labs:
Laboratory Results
08/24/25 08/24/25 08/24/25
06:06 12:53 20:00
WBC 7.4
Hgb 9.4 L
Hct 28.3 L
Plt Count 318
APTT 57.6 H 143.4 H Pending
Sodium 132 L
Potassium 3.7
Chloride 97 L
Carbon Dioxide 31 H
BUN 6 L
Creatinine 0.5 L
Glucose 92
Calcium 9.3
Vital Signs:
Vital Signs
Temp Pulse Resp BP Pulse Ox
98.2 F 107 18 127/63 97
08/24/25 12:00 08/24/25 12:00 08/24/25 12:00 08/24/25 12:00 08/24/25 12:00
I&O
08/23/25 08/24/25 08/25/25
06:59 06:59 06:59
Intake Total 660 / 660
Output Total 650 / 650 1690 / 1690 550 / 550
Balance -650 / -650 -1030 / -1030 -550 / -550
Review of Systems
-
History Source: Patient
All other systems: Reviewed and negative
Respiratory: Reports Cough
Physical Exam
-
General: No Apparent Distress
[2025-08-24] MEDS: TYLENOL 650 MG PO (19:09)
[2025-08-24] MEDS: REGLAN 10 MG IV (19:10)
[2025-08-24] MEDS: SENOKOT-S 2 TABLET PO (19:40)
[2025-08-24 20:38] LABS: APTT 66.7 Sec (23.4-35.0)
[2025-08-25] VITALS (12 sets, daily range): BP systolic 110–146; BP diastolic 63–90
[2025-08-25] MEDS: ROXICODONE 10 MG PO ×2 (00:27→16:37)
[2025-08-25] MEDS: STERILE WATER FOR INJECTION 10 ML IV ×4 (02:31→20:32)
[2025-08-25] MEDS: MAXIPIME 1000 MG IV ×4 (02:31→20:32)
[2025-08-25 03:40] LABS: APTT 86.8 Sec (23.4-35.0)
[2025-08-25] MEDS: BUSPAR 15 MG PO ×3 (07:41→21:39)
[2025-08-25] MEDS: FLEXERIL 5 MG PO ×2 (07:41→20:35)
[2025-08-25] MEDS: NEURONTIN 300 MG PO ×3 (07:43→21:39)
[2025-08-25] MEDS: PROTONIX 40 MG PO (07:43)
[2025-08-25] MEDS: LOW STRENGTH ASPIRIN 81 MG PO (07:43)
[2025-08-25] MEDS: VIBRAMYCIN 100 MG PO ×2 (07:44→20:33)
[2025-08-25] MEDS: DICLOFENAC 1% TOPICAL GEL 100 GRAM TOPICAL ×4 (07:44→21:40)
[2025-08-25] MEDS: LIPITOR 40 MG PO (07:44)
[2025-08-25] MEDS: MIRALAX 17 GRAMS PO (07:45)
[2025-08-25] MEDS: SENOKOT-S 2 TABLET PO ×2 (07:47→20:32)
[2025-08-25] MEDS: ZOLOFT 50 MG PO (07:47)
[2025-08-25] MEDS: MUCOMYST 20% 2 ML INH ×2 (08:10→18:41)
[2025-08-25] MEDS: DUONEB 3 ML INH ×3 (08:10→18:41)
[2025-08-25] MEDS: PULMICORT 0.25 MG INH ×2 (08:12→18:41)
[2025-08-25 09:17] LABS: APTT 135.3 Sec (23.4-35.0)
--- NOTE | 2025-08-25 09:21 | W.PN.CD ---
Today's Communication / Plan
-
Cardiac catheterization to clarify coronary anatomy today.
Echocardiogram.
Impression / Plan
-
Impression/Plan: 70 y/o male with history of HTN, recovered Takotsubo cardiomyopathy and severe COPD admitted with acute exacerbation, found to have acute troponin elevation.
#COPD exacerbation
-Acute on chronic.
-PNA noted, on antibiotics, O2 , MDI.
-Procalcitonin negative.
-Management per primary team.
#Troponin elevation/NH
-Acute, unclear if TYPE 1 vs Type 2.
-He describes pain in multiple places (bilateral shoulders, bilateral hips) including chest.
-Troponin peaked at 1.89.
-Echo pending.
-Given his history, I am unconvinced that non-invasive ischemic testing will be of any value and could exacerbate his COPD as he cannot use a treadmill and will require chemical vasodilation.
-Given these findings, we will proceed with cardiac catheterization to clarify coronary anatomy.
#Hypotension
-Transient, improving with IVF.
#HTN
-Chronic, previously hypotensive.
-Lisinopril on hold given hypotension.
#Prior Takotsubo CM
-Remote, resolved with normalized EF on last echo 02/13/25.
-GDMT.
Subjective/Interval History:
No acute events.
No subjective complaints.
DATA:
TTE, 02/13/2025:
CONCLUSIONS
Left ventricular ejection fraction is 60-65%, by visual assessment. Grossly
normal wall motion.
Normal right ventricular size and function.
No significant valvular disease.
No significant change since the prior study of 03/07/2024.
Physical Exam
Vital Signs/Labs
Vital Signs
Temp Pulse Resp BP Pulse Ox
36.6 C 98 18 135/75 95
08/25/25 07:11 08/25/25 08:17 08/25/25 08:17 08/25/25 07:11 08/25/25 08:17
08/23/25 08/24/25 08/25/25
11:59 11:59 11:59
Actual Weight 69.513 kg
08/25/25 06:00
08/24/25 06:06
APTT 86.8 Sec (23.4-35.0) H 08/25/25 03:00
08/23/25
00:16
Rxm-[id number] Pept 281
LAB Results
08/23/25 08/23/25 08/23/25
00:16 08:05 14:30
Troponin I 0.077 H* 1.890 H* D 0.771 H* D
Physical Exam
Constitutional: No acute distress and Comfortable
EENT: Anicteric and Moist mucous membranes
Cardiovascular: Rhythm & rate is regular, Pedal edema is absent, JVD pressure is normal, S1S2 is normal and Murmur/rub/gallop absent
Respiratory: Respiratory effort normal, Rhonchi Present and Other (Poor air movement throughout.)
GI: Soft, Distention absent, Flat, Non tender and Normal bowel sounds
Neuro/Psych: AO x 3
Data Reviewed
-
Date of Service: August 25, 2025
Medical Decision Making: Reviewed Test Results and Independent Historian Assessment
EKG: Tracing Personally Visualized and interpreted and Report Reviewed by me
Echo: Report Reviewed by me
X-Ray/CT/US/MRI/NUC/PET: Image Personally Visualized and interpreted and Report Reviewed by me
Labs: Labs Reviewed by me
Old Records: Reviewed
[2025-08-25] MEDS: HEPARIN 25000 UNITS/250 ML IV (12:03)
--- NOTE | 2025-08-25 13:22 | CM ---
CM reviewed chart, patient LTC resident Carlos Godinez.
Patient will require OT notes to submit for auth once stable for d/c back to facility.
CM will continue to follow for all d/c planning needs.
Plan; return to [facility], will require insurance auth prior to d/c
Carlos Godinez:
Report: [phone]
Fax:
--- NOTE | 2025-08-25 13:52 | W.PN.HOSP.TC ---
Today's Communication/Plan
-
Assessment / Plan
Assessment / Plan
General: No Apparent Distress, Comfortable and Conversant
HEENT: NormoCephalic, Moist mucous membranes, nasal cannula in place
Respiratory: Scattered rhonchi bilaterally, Non Labored Respirations
Cardiac: S1/S2 and Regular Rhythm; No Rub or Gallop
GI: Soft, Non Tender, Non Distended and Normal Bowel Sounds
Musculoskeletal: Mild pedal edema, no deformity
Skin: Warm and dry
: NO Lerma
Neuro: Awake, Alert, mild tremor
Psych: Calm and cooperative
Mr. Carter is a 70-year-old male with medical history of COPD/asthma (2 L at baseline), Takotsubo's cardiomyopathy, hypertension, and GERD who presented with shortness of breath and cough. He was requiring increased supplemental oxygen up to 4 L
via nasal cannula. His blood pressure initially was 90/40 with tachycardia up to 122. Chest x-ray was generally unremarkable but he had rales and rhonchi on exam. Respiratory panel was negative for influenza and COVID. He had mild hyponatremia
with a serum sodium 130 and initial troponin was slightly elevated at 0.077. He was given full-strength aspirin, bolused 500 cc of NS, started on antibiotics, and admitted for further evaluation and management.
Respiratory infection, pneumonia or bronchitis:
- Improving
- Continues to have cough productive of yellowish sputum
- Continue antibiotics with cefepime and doxycycline (abx D3/5), follow-up cultures, sputum culture negative although collected after multiple days of antibiotic
- Continue scheduled breathing treatments for his known COPD
- Supplemental oxygen as needed, currently back to his baseline 2 L
Acute on chronic respiratory failure with hypoxia:
- Secondary to respiratory infection
- Plan as above
NSTEMI:
- Troponins appear to have peaked at 1.89
- Continue IV heparin for now
- Low-dose aspirin and statin
- Cardiology following, planning echo today, eventual ischemic evaluation
Hypotension:
- Was likely hypovolemic, continues to improve
- Holding home lisinopril, can likely restart this medications today or tomorrow
Hyponatremia:
- Mild with a serum sodium 130, likely hypovolemic
- Given normal saline, slightly improved to 132 yesterday
- Will monitor
Chronic pain:
- Back and hip pain
- Continue outpatient oxycodone 10 mg every 8 hours
DVT prophylaxis: IV heparin
CODE STATUS: Full code
Anticipated Discharge: 24 - 48 hours
Subjective/Interval History
-
Date of Service: August 25, 2025
Patient was seen and examined at bedside this morning. No acute events overnight. Continues to have productive cough. Awaiting echocardiogram today.
Objective Data
-
Labs:
Laboratory Results
08/25/25 08/25/25 08/25/25
03:00 06:00 08:48
WBC Cancelled
Hgb Cancelled
Hct Cancelled
Plt Count Cancelled
APTT 86.8 H 135.3 H
08/25/25
17:30
WBC
Hgb
Hct
Plt Count
APTT Pending
Vital Signs:
Vital Signs
Temp Pulse Resp BP Pulse Ox
97.5 F 96 18 134/63 100
08/25/25 11:00 08/25/25 11:13 08/25/25 11:13 08/25/25 11:00 08/25/25 11:00
I&O
08/24/25 08/25/25 08/26/25
06:59 06:59 06:59
Intake Total 660 / 660 1150 / 1150
Output Total 1690 / 1690 1750 / 1750
Balance -1030 / -1030 -600 / -600
Review of Systems
-
History Source: Patient
All other systems: Reviewed and negative
Respiratory: Reports Cough
Physical Exam
-
General: No Apparent Distress
--- NOTE | 2025-08-25 14:28 | PHANOTE ---
med rec note- called retirement for missing medication list to be faxed over
[2025-08-25] MEDS: DUONEB INH (15:08)
--- NOTE | 2025-08-25 16:06 | ITS.CL.CATH ---
Biomedical Photographer - Catheterization
Cardiac Catheterization
Procedure Report:
CARDIAC CATHETERIZATION REPORT
Date of Procedure: 08/25/2025
Referring: Yessica Thornton M.D.
Indication: Troponin elevation with multiple CAD risk factors, possible non-ST elevation myocardial infarction.
PROCEDURE:
1. Right heart catheterization.
2. Coronary angiography.
3. Left heart catheterization.
4. Left ventriculography.
A total of 16 minutes of procedural/moderate sedation was utilized. An independent ophthalmic medical assistant was present to assist with and help manage the patient's level of consciousness and physiologic status.
ACCESS:
1. 6 Taiwanese right radial artery using a modified Seldinger technique.
2. 5 Taiwanese right antecubital vein using a previously placed IV.
CATHETERS:
1. 5 Taiwanese balloon wedge.
2. 5 Taiwanese JL 3.5.
3. 5 Taiwanese JR4.
4. 5 Taiwanese angled pigtail.
HEMODYNAMIC DATA
Weight (kg): 69.4
AO (s/d/x, mmHg): 124/65/92
LV (s/x, mmHg): 126/19
PCWP (a/v/x, mmHg): /
PA (s/d/x, mmHg): 47/30/36
RV (s/x, mmHg): 47/15
RA (a/v/x, mmHg):
SVC SvO2 (%): 63.4
IVC SvO2 (%): Not obtained.
RA SvO2 (%): Not obtained.
RV SvO2 (%): Not obtained.
PA SvO2 (%): 60.9
SaO2 (%): 95.7
Hbg (g/dL): 9.4
ANTOINE
CO (L/min): 5.16
CI (L/min/m2): 2.88
Thermodilution
CO (L/min): Not performed.
CI (L/min/m2): Not performed.
TPG (mmHg): 16
PVR (English Units): 3.1
SVR (dynes*seconds*cm^-5): 1194
AVO2 Diff (Volume %): 4.45
Cardiac Power Output (johnston): 1.05 (MAP * CO)/451 (normal 0.5 - 0.7; 0.4 - 0.6 in the elderly)
Cardiac Power Index (johnston/m2): 0.59 (MAP * CI)/451
Rama: 1.13 (PAs-PAd)/RA
AV gradient (x, mmHg): None.
AV area (cm2): Normal.
MV gradient (x, mmHg): Not obtained.
MV area (cm2): Not obtained.
LEFT VENTRICULOGRAPHY: Performed in an ISBELL projection. Normal left ventricular size and systolic function without regional wall motion abnormality. Left ventricular ejection fraction estimated at 60%. There is no mitral valve regurgitation.
There is no aortic valve insufficiency. The aortic root and visualized ascending and descending aorta appear normal.
AORTOGRAPHY: Not performed.
CORONARY ANGIOGRAPHY
Dominance: Right.
Left Main: Extremely short, bifurcating vessel. There is dense external calcification with no obvious angiographic stenosis.
LAD: Normal size vessel giving rise to 1 significant diagonal. There is no coronary artery disease.
Ramus: Congenitally absent.
Circumflex: Normal size, nondominant vessel giving rise to 3 obtuse marginals. There are luminal irregularities in the proximal and mid circumflex. There is a 30-40% lesion in the distal circumflex after the origin of the third obtuse
marginal which is the largest marginal branch.
RCA: Normal size, dominant vessel. There is no coronary artery disease.
INTERVENTIONS
None.
Closure Device: Vascular band for the right radial artery, manual pressure for the right antecubital vein.
Radiation dose (mGy): 229.60
DAP (cm2.Gy): 21.1752
Fluoroscopy time (minutes): 5.4
CONCLUSIONS:
1. Right dominant circulation with luminal irregularities in the circumflex and dense external calcification in the short left main with a 30-40% lesion in the distal circumflex after the origin of the third obtuse marginal.
2. Normal left ventricular size and systolic function with normal LVEF (60%).
3. Moderately elevated filling pressures (LVEDP = 20 mmHg, PCWP = 20 mmHg at 69.4 kg).
4. Preserved cardiac performance markers (cardiac index = 2.88 L/min/m�, cardiac power output 1.05 W, Rama = 1.13).
5. 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
RECOMMENDATIONS:
1. Expectant management after cardiac catheterization via right radial/antecubital approach.
2. Limited weight bearing on the right wrist for one week.
3. Continue treatment of underlying COPD exacerbation.
4. Start some gentle diuresis, furosemide 20 mg IV for moderately elevated filling pressures.
5. OMT/GDMT as hemodynamics will tolerate.
6. Continue primary prevention with aspirin and high-dose, high potency statin. Goal LDL <55.
Copy to: Yessica Thornton M.D., Minoo Sung D.O.
Luis A Ashton, , FACC, FACP
[2025-08-25] MEDS: LASIX 20 MG IV (16:48)
[2025-08-26] VITALS (7 sets, daily range): BP systolic 111–143; BP diastolic 62–83; PULSE 107–110; O2SAT 98
[2025-08-26] MEDS: REGLAN 10 MG IV ×2 (00:48→17:20)
[2025-08-26] MEDS: ROXICODONE 10 MG PO ×3 (00:48→22:41)
[2025-08-26] MEDS: STERILE WATER FOR INJECTION 10 ML IV ×4 (02:01→20:01)
[2025-08-26] MEDS: MAXIPIME 1000 MG IV ×4 (02:01→20:01)
[2025-08-26] MEDS: MUCOMYST 20% 2 ML INH ×2 (07:08→19:30)
[2025-08-26] MEDS: DUONEB 3 ML INH ×4 (07:08→19:30)
[2025-08-26] MEDS: PULMICORT 0.25 MG INH ×2 (07:09→19:30)
[2025-08-26] MEDS: NEURONTIN 300 MG PO ×3 (07:28→22:20)
[2025-08-26] MEDS: PROTONIX 40 MG PO (07:28)
[2025-08-26] MEDS: VIBRAMYCIN 100 MG PO ×2 (07:28→20:02)
[2025-08-26] MEDS: ZOLOFT 50 MG PO (07:28)
[2025-08-26] MEDS: FLEXERIL 5 MG PO ×2 (07:28→20:01)
[2025-08-26] MEDS: LIPITOR 40 MG PO (07:29)
[2025-08-26] MEDS: SENOKOT-S 2 TABLET PO ×2 (07:30→20:02)
[2025-08-26] MEDS: BUSPAR 15 MG PO ×3 (07:30→22:20)
[2025-08-26] MEDS: LOW STRENGTH ASPIRIN 81 MG PO (07:30)
[2025-08-26] MEDS: MIRALAX 17 GRAMS PO (07:31)
--- NOTE | 2025-08-26 07:31 | W.PN.CD ---
Today's Communication / Plan
-
Start dapagliflozin 10 mg daily. Case management consult.
Change furosemide to 20 mg PO daily.
Continue COPD treatment. That is his primary pathology.
Impression / Plan
-
Impression/Plan: 70 y/o male with history of HTN, recovered Takotsubo cardiomyopathy and severe COPD admitted with acute exacerbation, found to have acute troponin elevation.
#COPD exacerbation
-Acute on chronic.
-PNA noted, on antibiotics, O2 , MDI.
-Procalcitonin negative.
-Management per primary team.
#Troponin elevation/LA
-Acute, non-LA troponin elevation.
-He describes pain in multiple places (bilateral shoulders, bilateral hips) including chest.
-Troponin peaked at 1.89.
-Cath shows non-occlusive CAD in the LCx and preserved LVEF (60%) on LVgram.
-Aggressive primary prevention with aspirin, atorvastatin.
#HFpEF
-Acute.
-LVEDP = 20 mmHg, PCWP = 20 mmHg.
-GDMT as tolerated:
-Diuretics: Change furosemide to 20 mg PO daily.
-Beta dyana: None currently. Will hold in light of recent hypotension.
-ACEI/ARB/ARNi: None currently. Will hold in light of recent hypotension.
-MRA: None currently. Will hold in light of recent hypotension.
-SGLT2i: Start dapagliflozin 10 mg daily. Case management consult.
-ICD: Not indicated.
#HTN
-Chronic, previously hypotensive.
-Lisinopril on hold given hypotension.
#Prior Takotsubo CM
-Remote, resolved with normalized EF on last echo 02/13/25.
-GDMT as above.
Subjective/Interval History:
I visited the room twice, but the patient was not available. This is a chart review note/recommendation only.
Weight down 0.5 kg from yesterday.
HR remains 90-110.
SaO2 = 95% on 2LNC.
DATA:
TTE, 02/13/2025:
CONCLUSIONS
Left ventricular ejection fraction is 60-65%, by visual assessment. Grossly
normal wall motion.
Normal right ventricular size and function.
No significant valvular disease.
No significant change since the prior study of 03/07/2024.
Cardiac Catheterization, 08/25/2025:
CONCLUSIONS:
1. Right dominant circulation with luminal irregularities in the circumflex and dense external calcification in the short left main with a 30-40% lesion in the distal circumflex after the origin of the third obtuse marginal.
2. Normal left ventricular size and systolic function with normal LVEF (60%).
3. Moderately elevated filling pressures (LVEDP = 20 mmHg, PCWP = 20 mmHg at 69.4 kg).
4. Preserved cardiac performance markers (cardiac index = 2.88 L/min/m�, cardiac power output 1.05 W, Rama = 1.13).
5. 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
Physical Exam
Vital Signs/Labs
Vital Signs
Temp Pulse Resp BP Pulse Ox
36.6 C 92 15 111/65 95
08/26/25 04:13 08/26/25 07:11 08/26/25 07:11 08/26/25 04:13 08/26/25 07:11
APTT Cancelled 08/25/25 17:30
08/23/25
00:16
Naz-Q-Kbiutzzjlcc Pept 281
LAB Results
08/23/25 08/23/25
08:05 14:30
Troponin I 1.890 H* D 0.771 H* D
Physical Exam
Respiratory: Rhonchi Present
Chart review only.
Data Reviewed
-
Date of Service: August 26, 2025
Medical Decision Making: Reviewed Test Results, Independent Historian Assessment and Test Interpretation
EKG: Tracing Personally Visualized and interpreted and Report Reviewed by me
X-Ray/CT/US/MRI/NUC/PET: Image Personally Visualized and interpreted and Report Reviewed by me
Medical Tests (PFT, Pathology etc): Image Personally Visualized and interpreted, Report Reviewed by me, Discussed with Patient and Discussed with Family
Labs: Labs Reviewed by me
Old Records: Reviewed
[2025-08-26] MEDS: DICLOFENAC 1% TOPICAL GEL 100 GRAM TOPICAL ×4 (07:35→22:20)
[2025-08-26 07:41] LABS: Hematocrit 28.3 % (39.0-52.0); Hemoglobin 9.5 g/dL (13.0-18.0); Mean Corp Hgb Conc. 33.6 g/dL (33.0-37.0); Mean Corpuscular Volume 86.3 fL (80.0-94.0); Nucleated Red Blood Cells % 0 % (-); Platelet Count 326 10^3/uL (130-400); Red Cell Dist. Width 14.0 % (11.5-14.5)
[2025-08-26 08:37] LABS: Blood Urea Nitrogen 7 mg/dl (9-20); Calcium 9.4 mg/dl (8.4-10.2); Carbon Dioxide 33 mmol/L (22-30); Chloride 97 mmol/L (98-107); Estimated Creatinine Clearance 105 ml/min; Glucose 90 mg/dl (70-99); Potassium 3.8 mmol/L (3.5-5.1); Sodium 134 mmol/L (135-145); eGFR > 60.00
--- NOTE | 2025-08-26 09:31 | CARDSERVDEF ---
Echocardiogram with Definity completed after protocol screening completed. Allergies verified.
Patent IV site: r hand
IV site flushed with 0.9% NaCl pre and post administration.
Diluted bolus method utilized to enhance visualization of ventricular rodriguez.
Total volume given: __4__ mL
Patient tolerated all procedures well without complications.
[2025-08-26] MEDS: FARXIGA 10 MG PO (10:13)
[2025-08-26] MEDS: LASIX 20 MG PO (11:30)
--- NOTE | 2025-08-26 11:33 | W.PN.HOSP.TC ---
Today's Communication/Plan
-
cont w/abx
diuresis
GDMT
Start dispo
Assessment / Plan
Assessment / Plan
General: No Apparent Distress, Comfortable and Conversant
HEENT: NormoCephalic, Moist mucous membranes, nasal cannula in place
Respiratory: Scattered rhonchi bilaterally, Non Labored Respirations
Cardiac: S1/S2 and Regular Rhythm; No Rub or Gallop
GI: Soft, Non Tender, Non Distended and Normal Bowel Sounds
Musculoskeletal: Mild pedal edema, no deformity
Skin: Warm and dry
: NO Lerma
Neuro: Awake, Alert, mild tremor
Psych: Calm and cooperative
Mr. Carter is a 70-year-old male with medical history of COPD/asthma (2 L at baseline), Takotsubo's cardiomyopathy, hypertension, and GERD who presented with shortness of breath and cough. He was requiring increased supplemental oxygen up to 4 L
via nasal cannula. His blood pressure initially was 90/40 with tachycardia up to 122. Chest x-ray was generally unremarkable but he had rales and rhonchi on exam. Respiratory panel was negative for influenza and COVID. He had mild hyponatremia
with a serum sodium 130 and initial troponin was slightly elevated at 0.077. He was given full-strength aspirin, bolused 500 cc of NS, started on antibiotics, and admitted for further evaluation and management.
Respiratory infection, pneumonia or bronchitis:
- Improving
- Continues to have cough productive of yellowish sputum
- Continue antibiotics with cefepime and doxycycline follow-up cultures, sputum culture negative although collected after multiple days of antibiotic
- Continue scheduled breathing treatments for his known COPD
- Supplemental oxygen as needed, currently back to his baseline 2 L
Acute on chronic respiratory failure with hypoxia:
- Secondary to respiratory infection
- Plan as above
Non TN troponin elevation
- Troponins appear to have peaked at 1.89
- Low-dose aspirin and statin
- s/p cardiac cath with non occlusive cad.
Hypotension:
- Was likely hypovolemic, continues to improve
- restart lisinopril reduce dose to 2.5mg
Acute HFpEF
-with elevated LVEDP.
-Started on GDMT-Lasix, farxiga, BB held hypotension. lisinopril reduce dose to 2.5mg
Hyponatremia:
- Mild with a serum sodium 134, likely hypovolemic
- Will monitor
Chronic anemia
-trend for now.
Chronic pain:
- Back and hip pain
- Continue outpatient oxycodone 10 mg every 8 hours
DVT prophylaxis: IV heparin
CODE STATUS: Full code
Anticipated Discharge: Within 24 hours
Subjective/Interval History
-
Date of Service: August 26, 2025
states breathing has improved
Objective Data
-
Labs:
Laboratory Results
08/26/25
06:26
WBC 8.0
Hgb 9.5 L
Hct 28.3 L
Plt Count 326
Sodium 134 L
Potassium 3.8
Chloride 97 L
Carbon Dioxide 33 H
BUN 7 L
Creatinine 0.6 L
Glucose 90
Calcium 9.4
Vital Signs:
Vital Signs
Temp Pulse Resp BP Pulse Ox
97.7 F 109 24 143/83 97
08/26/25 11:20 08/26/25 11:20 08/26/25 11:20 08/26/25 11:20 08/26/25 11:20
I&O
08/25/25 08/26/25 08/27/25
06:59 06:59 06:59
Intake Total 1150 / 1150 600 / 600
Output Total 1750 / 1750 2325 / 2325
Balance -600 / -600 -1725 / -1725
Data Reviewed
-
Total Time Spent with Patient (in minutes): 55
[2025-08-26] MEDS: ZESTRIL 2.5 MG PO (13:29)
--- NOTE | 2025-08-26 13:49 | CM ---
CM reviewed chart, [facility] to [facility].
Liaison aware of medication for patient- dapagliflozin.
Auth submitted to juan, pending reference #[id number], clinicals faxed to [phone].
CM will continue to follow for all d/c needs.
Plan; return to [facility], auth submitted and pending
Carlos Berryor:
Report: [phone]
Fax:
[2025-08-26] MEDS: TYLENOL 650 MG PO (20:35)
[2025-08-27] MEDS: MAXIPIME 1000 MG IV ×2 (01:57→07:32)
[2025-08-27] MEDS: STERILE WATER FOR INJECTION 10 ML IV ×2 (01:57→07:32)
[2025-08-27 04:13] VITALS: BP 140/75
[2025-08-27] MEDS: DUONEB 3 ML INH ×4 (04:16→15:06)
[2025-08-27 07:00] VITALS: BP 149/78
[2025-08-27] MEDS: MIRALAX 17 GRAMS PO (07:30)
[2025-08-27] MEDS: FARXIGA 10 MG PO (07:30)
[2025-08-27] MEDS: VIBRAMYCIN 100 MG PO (07:30)
[2025-08-27] MEDS: NEURONTIN 300 MG PO (07:30)
[2025-08-27] MEDS: LOW STRENGTH ASPIRIN 81 MG PO (07:30)
[2025-08-27] MEDS: DICLOFENAC 1% TOPICAL GEL 100 GRAM TOPICAL ×2 (07:30→14:35)
[2025-08-27] MEDS: SENOKOT-S 2 TABLET PO (07:30)
[2025-08-27] MEDS: LIPITOR 40 MG PO (07:30)
[2025-08-27] MEDS: FLEXERIL 5 MG PO (07:31)
[2025-08-27] MEDS: BUSPAR 15 MG PO (07:31)
[2025-08-27] MEDS: ZOLOFT 50 MG PO (07:31)
[2025-08-27] MEDS: ZESTRIL 2.5 MG PO (07:31)
[2025-08-27] MEDS: PROTONIX 40 MG PO (07:31)
[2025-08-27] MEDS: LASIX 20 MG PO (07:31)
[2025-08-27 07:34] VITALS: BP 123/76
[2025-08-27 07:34] LABS: Hematocrit 28.9 % (39.0-52.0); Hemoglobin 9.7 g/dL (13.0-18.0); Mean Corp Hgb Conc. 33.6 g/dL (33.0-37.0); Mean Corpuscular Volume 88.4 fL (80.0-94.0); Nucleated Red Blood Cells % 0 % (-); Platelet Count 308 10^3/uL (130-400); Red Cell Dist. Width 13.9 % (11.5-14.5)
[2025-08-27] MEDS: MUCOMYST 20% 2 ML INH (07:48)
[2025-08-27] MEDS: PULMICORT 0.25 MG INH (07:48)
[2025-08-27 08:04] LABS: Blood Urea Nitrogen 11 mg/dl (9-20); Calcium 9.3 mg/dl (8.4-10.2); Carbon Dioxide 31 mmol/L (22-30); Chloride 98 mmol/L (98-107); Estimated Creatinine Clearance 105 ml/min; Glucose 92 mg/dl (70-99); Potassium 3.6 mmol/L (3.5-5.1); Sodium 133 mmol/L (135-145); eGFR > 60.00
--- NOTE | 2025-08-27 10:52 | PN.CDI ---
CDI
- -
CDI:
Physician Documentation Request
Admit Date: 08/23/25 05:14
Dear Doctor,
Please review the following and provide your response in the progress notes.
Clinical Indicators:
Pt. admitted with Respiratory infection, pneumonia or bronchitis, Acute on chronic respiratory failure with hypoxia, and Acute HFpEF.
08/26 PN: ' Non ND troponin elevation - Troponins appear to have peaked at 1.89'
Based on the above, could you clarify in the progress notes, the appropriate diagnosis, if significant, that supports the above lab abnormalities and additional evaluation, monitoring and/or treatment rendered:
Non-ischemic myocardial injury
Insignificant abnormal troponin elevation
Other
Use of terms such as suspected, likely, concern for, or probable (associated with a specific diagnosis that is being evaluated, monitored, or treated as if it exists) are acceptable and can be coded in the inpatient setting, when documented at the
time of discharge.
Thank you,
Leonila Oneill RN, BSN
CDI Specialist
[facility]
Please use your independent medical judgment in providing your response.
[2025-08-27 11:00] VITALS: BP 96/81
--- NOTE | 2025-08-27 11:29 | W.PN.HOSP.TC ---
Addendum entered and electronically signed by Terry Montes MD 08/27/25 13:30:
updated sister over the phone in details.
Original Note:
Today's Communication/Plan
-
prednisone
speech eval
stop cefepime
await placement
Assessment / Plan
Assessment / Plan
General: No Apparent Distress, Comfortable and Conversant
HEENT: NormoCephalic, Moist mucous membranes, nasal cannula in place
Respiratory: Scattered rhonchi bilaterally, Non Labored Respirations
Cardiac: S1/S2 and Regular Rhythm; No Rub or Gallop
GI: Soft, Non Tender, Non Distended and Normal Bowel Sounds
Musculoskeletal: Mild pedal edema, no deformity
Skin: Warm and dry
: NO Lerma
Neuro: Awake, Alert, mild tremor
Psych: Calm and cooperative
Mr. Carter is a 70-year-old male with medical history of COPD/asthma (2 L at baseline), Takotsubo's cardiomyopathy, hypertension, and GERD who presented with shortness of breath and cough. He was requiring increased supplemental oxygen up to 4 L
via nasal cannula. His blood pressure initially was 90/40 with tachycardia up to 122. Chest x-ray was generally unremarkable but he had rales and rhonchi on exam. Respiratory panel was negative for influenza and COVID. He had mild hyponatremia
with a serum sodium 130 and initial troponin was slightly elevated at 0.077. He was given full-strength aspirin, bolused 500 cc of NS, started on antibiotics, and admitted for further evaluation and management.
Cough likely 2/2 bronchitis ?AECOPD
- Improved
- states of dry cough.
- procal negative. stop cefepime. okay for doxy with bronchitis/AECOPD
- Continue scheduled breathing treatments for his known COPD
- Supplemental oxygen as needed, currently back to his baseline 1-2 L
- would benefit from short course of steroids
Acute on chronic respiratory failure with hypoxia:
- Secondary to respiratory infection
- Plan as above
- speech eval
Non ischemic myocardial injury
- Troponins appear to have peaked at 1.89
- Low-dose aspirin and statin
- s/p cardiac cath with non occlusive cad.
Hypotension:
- Was likely hypovolemic, continues to improve
- restart lisinopril reduce dose to 2.5mg
Acute HFpEF
-with elevated LVEDP.
-Started on GDMT-Lasix, farxiga, BB held hypotension. lisinopril reduce dose to 2.5mg
Hyponatremia:
- Mild with a serum sodium 134, likely hypovolemic
- Will monitor
Chronic anemia
-trend for now.
Chronic pain:
- Back and hip pain
- Continue outpatient oxycodone 10 mg every 8 hours
DVT prophylaxis: scd
CODE STATUS: Full code
Dispo-back to [facility]-awaiting auth.
Anticipated Discharge: Today
Subjective/Interval History
-
Date of Service: August 27, 2025
states of dry cough
Objective Data
-
Labs:
Laboratory Results
08/27/25
06:35
WBC 6.8
Hgb 9.7 L
Hct 28.9 L
Plt Count 308
Sodium 133 L
Potassium 3.6
Chloride 98
Carbon Dioxide 31 H
BUN 11
Creatinine 0.5 L
Glucose 92
Calcium 9.3
Vital Signs:
Vital Signs
Temp Pulse Resp BP Pulse Ox
97.9 F 93 18 123/76 96
08/27/25 07:00 08/27/25 11:04 08/27/25 11:04 08/27/25 07:34 08/27/25 11:04
I&O
08/26/25 08/27/25 08/28/25
06:59 06:59 06:59
Intake Total 600 / 600 1080 / 1080
Output Total 2325 / 2325 955 / 955
Balance -1725 / -1725 125 / 125
Data Reviewed
-
Total Time Spent with Patient (in minutes): 55
--- NOTE | 2025-08-27 11:31 | W.PN.CD ---
Today's Communication / Plan
-
Start metoprolol succinate 12.5 mg daily.
Monitor response to introduction of GDMT.
Treatment of COPD.
Discharge planning.
Impression / Plan
-
Impression/Plan: 70 y/o male with history of HTN, recovered Takotsubo cardiomyopathy and severe COPD admitted with acute exacerbation, found to have acute troponin elevation.
#COPD exacerbation
-Acute on chronic.
-PNA noted, on antibiotics, O2 , MDI.
-Procalcitonin negative.
-Management per primary team.
#Troponin elevation
-Acute, non-ischemic myocardial injury.
-He describes pain in multiple places (bilateral shoulders, bilateral hips) including chest.
-Troponin peaked at 1.89.
-Cath shows non-occlusive CAD in the LCx and preserved LVEF (60%) on LVgram.
-Aggressive primary prevention with aspirin, atorvastatin.
#HFpEF
-Acute.
-LVEDP = 20 mmHg, PCWP = 20 mmHg.
-GDMT as tolerated:
-Diuretics: Furosemide 20 mg PO daily.
-Beta dyana: None currently. Start metoprolol succinate 12.5 mg daily.
-ACEI/ARB/ARNi: Lisinopril 2.5 mg daily.
-MRA: None currently. LVEF > 40%.
-SGLT2i: Dapagliflozin 10 mg daily.
-ICD: Not indicated.
#HTN
-Chronic, stable.
-Monitor BP with introduction of GDMT.
#Prior Takotsubo CM
-Remote, resolved with normalized EF on last echo 02/13/25.
-GDMT as above.
Subjective/Interval History:
Weight down 0.5 kg.
SaO2 = 96% on 2LNC.
DATA:
TTE, 02/13/2025:
CONCLUSIONS
Left ventricular ejection fraction is 60-65%, by visual assessment. Grossly
Normal wall motion.
Normal right ventricular size and function.
No significant valvular disease.
No significant change since the prior study of 03/07/2024.
Cardiac Catheterization, 08/25/2025:
CONCLUSIONS:
1. Right dominant circulation with luminal irregularities in the circumflex and dense external calcification in the short left main with a 30-40% lesion in the distal circumflex after the origin of the third obtuse marginal.
2. Normal left ventricular size and systolic function with normal LVEF (60%).
3. Moderately elevated filling pressures (LVEDP = 20 mmHg, PCWP = 20 mmHg at 69.4 kg).
4. Preserved cardiac performance markers (cardiac index = 2.88 L/min/m�, cardiac power output 1.05 W, Rama = 1.13).
5. 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
TTE, 08/26/2025:
SUMMARY
1. Very TDS. Normal-appearing biventricular size and function without obvious wall motion abnormalities.
2. LVEF is 60-65% by visual estimation.
3. Limited valvular interrogation. No obvious valvular disease.
4. Compared to prior from February 13, 2025, no significant change.
Physical Exam
Vital Signs/Labs
Vital Signs
Temp Pulse Resp BP Pulse Ox
36.6 C 93 18 123/76 96
08/27/25 07:00 08/27/25 11:04 08/27/25 11:04 08/27/25 07:34 08/27/25 11:04
08/27/25 06:35
08/27/25 06:35
APTT Cancelled 08/25/25 17:30
08/23/25
00:16
[id number] Pept 281
Physical Exam
Constitutional: No acute distress and Comfortable
EENT: Anicteric and Moist mucous membranes
Cardiovascular: Rhythm & rate is regular, Pedal edema is absent, JVD pressure is normal, S1S2 is normal and Murmur/rub/gallop absent
Respiratory: Respiratory effort normal, Lungs clear to auscul., Crackles Absent, Wheeze Present and Rhonchi Present
GI: Soft, Distention absent, Flat, Non tender and Normal bowel sounds
Neuro/Psych: AO x 3
Other: Cath Site (Right radial and antecubital access sites are C/D/I.)
Data Reviewed
-
Date of Service: August 27, 2025
Medical Decision Making: Reviewed Test Results, Independent Historian Assessment and Test Interpretation
EKG: Tracing Personally Visualized and interpreted and Report Reviewed by me
Echo: Report Reviewed by me
X-Ray/CT/US/MRI/NUC/PET: Image Personally Visualized and interpreted and Report Reviewed by me
Medical Tests (PFT, Pathology etc): Image Personally Visualized and interpreted, Report Reviewed by me, Discussed with Physician and Discussed with Patient
Labs: Labs Reviewed by me
Old Records: Reviewed
[2025-08-27] MEDS: ROXICODONE 10 MG PO (11:40)
[2025-08-27] MEDS: DELTASONE 40 MG PO (11:40)
--- NOTE | 2025-08-27 13:29 | CM ---
CM reviewed chart, auth received for SNF, approved -08/31, NRD 09/01, auth #[id number]. [facility]
Patient seen bedside.
CM discussed patient for d/c today- requesting call to his sister who is POA.
Phone call to patients sister, Jeanette, aware of d/c today. Requesting call from Hospitalist.
IMM verbally reviewed, placed in chart.
Jeanette will pay for wheel chair van transport, number to call for payment [phone], transport scheduled for 4:00 p.m.
CM will continue to follow for all d/c planning needs.
Plan; return to [facility], 4:00 p.m. WC Van transport
[facility]:
Report: [phone]
Fax:
--- NOTE | 2025-08-27 13:39 | W.DCSUMMARY ---
Discharge Summary
Discharge Data
Date of Admission: 08/23/25
Date of Discharge: 08/27/25
-
Pending Results: No
Hospital Course
70-year-old male with medical history of COPD/asthma (2 L at baseline), Takotsubo's cardiomyopathy, hypertension, and GERD who presented with shortness of breath and cough. He was requiring increased supplemental oxygen up to 4 L via nasal cannula.
His blood pressure initially was 90/40 with tachycardia up to 122. Chest x-ray was generally unremarkable but he had rales and rhonchi on exam. Respiratory panel was negative for influenza and COVID. He had mild hyponatremia with a serum sodium
130 and initial troponin was slightly elevated at 0.077. He was given full-strength aspirin, bolused 500 cc of NS, started on antibiotics, and admitted for further evaluation and management. Patient with elevated troponin. Patient was seen by
cardiology. Patient underwent cardiac catheterization and nonobstructive CAD. Patient was found to have elevated wedge pressure. Patient was on IV diuresis. Patient with mild acute diastolic heart failure exacerbation and was started on
goal-directed medical therapy. Patient was started on Farxiga, low-dose Toprol. Lisinopril dose was decreased. Patient was tolerating Lasix low-dose regimen. Patient was weaned to baseline oxygenation. Procalcitonin was negative and cefepime
was discontinued. Patient was also started on prednisone with a quick taper regimen. Patient sister was updated about hospitalization. Patient be discharged back to [facility]. Recommend patient to be seen by speech therapist at [facility]
[place] and Case management confirmed patient can be seen by speech pathologist and appropriate studies can be ordered by them as deemed appropriate.
Discharge Plan
-
Patient Disposition: Halfway/SNF
Discharge Diagnosis/Procedures: Acute on chronic respiratory hypoxic failure
Suspected bronchitis
Non-MD troponin elevation
Hypotension
Acute HFpEF
Hyponatremia
Condition: Fair
Diet: 2 Gram Sodium and Restrict fluids to 48 oz
Activity: As tolerated
Driving Restrictions: As prior to admission
Other Services: ST
Activity Restrictions/Additional Instructions:
Keep daily log of your blood pressures at home to review with your primary care provider or fine arts chair in follow up.
Please take medications as prescribed/recommended and follow up with primary care provider and/or other healthcare provider involved in your care for refills and/or further adjustment to your medication regimen as necessary. �
recommend repeat speech therapy evaluation at [facility]. Also recommend video fluoroscopy (VFSS) study.
Stand Alone Forms: DC Instructions- Cath/EP Lab
Referrals:
Jose Martin Wilson DO [Family Provider, Family Practice] - in less than 1 week
Luis A Ashton DO [Active, Cardiology]
Prescriptions:
New
furosemide 20 mg Tablet
20 mg PO DAILY Qty: 30 0RF
dapagliflozin propanediol 10 mg Tablet
10 mg PO DAILY 30 Days Qty: 30 0RF
doxycycline hyclate 100 mg Capsule
100 mg PO BID Qty: 1 0RF
prednisone 10 mg Tablet
See Rx Instructions .ROUTE .COMPLEX Qty: 30 0RF
Rx Instructions:
Take By Mouth:
40 mg daily x3 days, 30 mg daily x3 days,
20 mg daily x3 days, 10 mg daily x3 days.
metoprolol succinate 25 mg Tablet Extended Release 24 Hr
12.5 mg PO DAILY 30 Days Qty: 15 0RF
Continued
cholecalciferol (vitamin D3) 1,000 UNITS tablet
1,000 units PO DAILY
atorvastatin [Lipitor] 40 mg Tablet
40 mg PO QPM
pantoprazole [Protonix] 40 mg Tablet,Delayed Release (Dr/Ec)
40 mg PO DAILY
buspirone 15 mg Tablet
15 mg PO TID
diclofenac sodium 1 % Gel
1 ea TOPICAL QID
gabapentin 300 MG capsule
600 mg PO TID
acetaminophen [Tylenol] 325 mg Tablet
650 mg PO Q4HPRN PRN (Reason: mild pain)
ipratropium-albuterol 0.5 mg-3 mg(2.5 mg base)/3 mL Solution For Nebulization
3 ml INHALATION R Q6HPRN PRN (Reason: sob)
ipratropium-albuterol 0.5 mg-3 mg(2.5 mg base)/3 mL Solution For Nebulization
3 ml INHALATION R QID
polyethylene glycol 3350 [Miralax] 17 gram Powder In Packet
17 g PO DAILY
ondansetron HCl 4 mg Tablet
4 mg PO Q8HPRN PRN (Reason: nausea)
melatonin 3 mg Tablet
3 mg PO HSPRN PRN (Reason: sleep)
aspirin 81 mg Tablet,Delayed Release (Dr/Ec)
81 mg PO DAILY
magnesium hydroxide [Milk of Magnesia] 400 mg/5 mL Suspension
2,400 mg PO HSPRN PRN (Reason: constipation)
bisacodyl [Dulcolax (bisacodyl)] 10 mg Suppository
10 mg SC [id number] PRN (Reason: if no bm aftr mom)
calcium carbonate [Tums] 200 mg calcium (500 mg) Tablet,Chewable
200 mg PO TIDPRN PRN (Reason: gerd)
acetylcysteine 100 mg/mL (10 %) Solution
2 ml INHALATION R TID
budesonide 0.5 mg/2 mL Suspension For Nebulization
0.5 mg INHALATION R BID
bisacodyl [Dulcolax (bisacodyl)] 5 mg Tablet,Delayed Release (Dr/Ec)
10 mg PO DAILYPRN PRN (Reason: constipation)
sertraline 50 mg Tablet
50 mg PO DAILY
cyclobenzaprine 5 mg Tablet
5 mg PO BID
sodium chloride 0.65 % Aerosol,[place]
1 spray INTRANASAL Q4HPRN PRN (Reason: dryness)
guaifenesin [Mucinex] 600 mg Tablet Extended Release 12hr
600 mg PO BID
magnesium oxide 400 mg magnesium Tablet
400 mg PO BID
Senna Plus 8.6-50 mg Capsule
2 tab-cap PO BID
oxycodone 5 mg Tablet
5 mg PO Q6HPRN PRN (Reason: moderate pains) 3 Days Qty: 12 0RF
Changed
lisinopril 5 mg Tablet
2.5 mg PO DAILY Qty: 0 0RF
oxycodone 5 mg Tablet
10 mg PO Q8HPRN PRN (Reason: severe pains) 3 Days Qty: 18 0RF
Discontinued
metoclopramide HCl [Reglan] 10 mg Tablet
10 mg PO [id number] PRN (Reason: stoamch pains)
Discharge Orders:
Discharge Patient (As Directed); Ordered 08/27/25
Ordered By: Terry Montes
Discharge Date and Time
Print Language: TURKMEN
[2025-08-27] MEDS: TOPROL XL 12.5 MG PO (14:36)
[2025-08-27 14:53] VITALS: BP 137/67; PULSE 110; O2SAT 97
[2025-08-27 15:00] VITALS: BP 136/76
--- NOTE | 2025-08-27 15:47 | PTOTSP ---
Acute Care Evaluation
Pt currently presents with clinical signs of suspected pharyngoesopahgeal dysphagia characterized by difficulty initiating swallows with dry/hard solids, globus sensation with solids that require liquids to wash/clear and/or regurgitation if not
passed, and increased upper airway coarseness/wetness s/p ingestion of a variety of PO consistencies that is suspicious for airway invasion from either ingestion or retrograde flow from the esophagus in the setting of known dx of GERD and
gastroparesis with pt report of increase in eructation and 'burning' sensation in his throat.
Pt is deemed at an elevated risk for aspiration due to his baseline dependency for supplemental oxygen, gastroparesis, GERD, poor recall of strategies provided previously, reduced awareness/responsiveness to airway invasion thus requiring external
verbal prompting to cough/clear upper airway with a [cough/throat clear + swallow], and multiple baseline medical comorbities.
Recommendations:
- Soft bite sized solids with thin liquids, meds whole with liquids as tolerated (place in puree as needed).
- Aspiration and reflux precautions: Small bites/sips; chew food thoroughly; add moisture to solids; HOB upright for 60 minutes after PO intake; eat/drink slowly; avoid reflux-triggering food/drinks.
- Consider GI consultation as an OP.
- BUSINESS DEVELOPMENT AGENT to complete VFSS (can be done as an OP) - not FEES - need to assess esophageal phase of swallow.
- BUSINESS DEVELOPMENT AGENT to follow up while admitted as well as an OP at next level of care.
== END 2025-08-27 16:34 | DRG 286 ==
LOC: 4 WEST ACU 05:14
PROVIDERS: Internal Medicine; Internal Medicine Cardiovascular Disease; ADMITTING PHYSICIAN Internal Medicine; ATTENDING PHYSICIAN Hospitalist; EMERGENCY PHYSICIAN Emergency Medicine; FAMILY PHYSICIAN Student in an Organized Health Care Education/Training Program; OTHER PHYSICIAN Internal Medicine Cardiovascular Disease
PROC: B2151ZZ Fluoroscopy of Left Heart using Low Osmolar Contrast (ICD-10-PCS; 2025-08-25)
PROC: B2111ZZ Fluoroscopy of Multiple Coronary Arteries using Low Osmolar Contrast (ICD-10-PCS; 2025-08-25)
PROC: 4A023N8 Measurement of Cardiac Sampling and Pressure, Bilateral, Percutaneous Approach (ICD-10-PCS; 2025-08-25)
DX: I11.0 Hypertensive heart disease with heart failure (principal); I50.33 Acute on chronic diastolic (congestive) heart failure; J96.21 Acute and chronic respiratory failure with hypoxia; J18.9 Pneumonia, unspecified organism; E87.1 Hypo-osmolality and hyponatremia; J44.1 Chronic obstructive pulmonary disease with (acute) exacerbation; F17.200 Nicotine dependence, unspecified, uncomplicated; I5A Non-ischemic myocardial injury (non-traumatic); Z11.52 Encounter for screening for COVID-19; Z79.82 Long term (current) use of aspirin; I95.9 Hypotension, unspecified; Z99.81 Dependence on supplemental oxygen; Z79.899 Other long term (current) drug therapy
CPT/HCPCS: 71046; 80048; 80053; 81003; 83605; 83880; 84145; 84484; 85025; 85027; 85730; 87040; 87070; 87205; 87449; 87502; 87811; 87899; 92610; 93005; 93308; 93321; 93325; 93460; 94640; 96361; 96365; 97116; 97163; 97166; 97530; 99152; 99285; C1769; C1894; Q9957; Q9967

== ENCOUNTER → 2025-09-16 11:04 | Outpatient (REF) | payer OTHER, SELFPAY ==
[2025-09-16 11:47] LABS: Hematocrit 31.8 % (39.0-52.0); Hemoglobin 10.7 g/dL (13.0-18.0); Mean Corp Hgb Conc. 33.6 g/dL (33.0-37.0); Mean Corpuscular Volume 85.9 fL (80.0-94.0); Nucleated Red Blood Cells % 0 % (-); Platelet Count 219 10^3/uL (130-400); Red Cell Dist. Width 13.5 % (11.5-14.5)
[2025-09-16 12:21] LABS: ALT (SGPT) 11 U/L (0-50); AST (SGOT) 24 U/L (17-59); Albumin 3.6 g/dl (3.5-5.0); Alkaline Phosphatase 102 U/L (38-126); Blood Urea Nitrogen 16 mg/dl (9-20); Calcium 8.9 mg/dl (8.4-10.2); Carbon Dioxide 26 mmol/L (22-30); Chloride 86 mmol/L (98-107); Glucose 72 mg/dl (70-99); Magnesium 2.1 mg/dl (1.6-2.3); Potassium 3.5 mmol/L (3.5-5.1); Sodium 125 mmol/L (135-145); Total Protein 6.2 g/dl (6.3-8.2); eGFR > 60.00
== END ==
LOC: OLABN 11:04
PROVIDERS: ATTENDING PHYSICIAN Student in an Organized Health Care Education/Training Program
DX: I10 Essential (primary) hypertension (principal); E83.42 Hypomagnesemia; R10.9 Unspecified abdominal pain; R11.10 Vomiting, unspecified
CPT/HCPCS: 36415; 80053; 83735; 85025